=== PATIENT | male | born 1940 | race Caucasian/White ===

== ENCOUNTER 2017-03-31 13:49 | Inpatient (IN) ==
[2017-03-31] MEDS ORDERED: TYLENOL PO PRN (14:35)
--- NOTE | 2017-03-31 15:52 | Diag Imaging Result Doc PS360 ---
EXAM: FLAT/UPRIGHT ABD/1 VIEW CHEST HISTORY: epigastric pain TECHNIQUE: Three views with chest COMMENT: There is gas and stool in the rectum. There is no evidence of gastric or small bowel dilatation. There is been cholecystectomy. There is severe degenerative changes in the lumbar spine. No free air is present. CHEST: There is an azygos lobe. There is blunting of the left costophrenic angle which may be due to fluid and/or fibrosis. There may be lingular atelectasis or pneumonia. There is apparent fibrosis in the right costophrenic sulcus. No previous studies are available for comparison. IMPRESSION: Pleural and parenchymal abnormalities over the left base as described. Mild constipation. Otherwise no evidence of acute disease in the abdomen. Electronically signed by Clark Machado 03/31/2017 3:49 PM
[2017-03-31 16:31] LABS: MANUAL DIFF NEEDED? NO
[2017-03-31 16:38] LABS: BASO% 0.1 % (0.0-0.8); EOS# 0.02 X1000 (0.0-0.7); EOS% 0.3 % (0.0-10.0); HEMATOCRIT 31.4 % (42.0-52.0); HEMOGLOBIN 9.8 g/dL (14.0-18.0); IMM GRAN# 0.02 X1000 (0.0-0.04); IMM GRAN% 0.3 % (0.0-0.5); LYMPH# 0.86 X1000 (1.2-3.4); LYMPH% 12.9 % (20.5-51.1); MCH 29.5 PG (27-31); MCHC 31.2 g/dL (33-37); MCV 94.6 FL (81-99); MONO# 0.64 X1000 (0.11-0.59); MONO% 9.6 % (1.7-9.3); MPV 9.6 FL (7.4-10.4); NEUT% 76.8 % (42.2-75.2); PLT 390 X1000 (130-400); RBC 3.32 XMIL (4.7-6.1)
[2017-03-31 16:49] LABS: AGAP 13; ALBUMIN 3.4 g/dL (3.5-5.0); ALKALINE PHOSPHATASE 92 U/L (32-122); AMYLASE 46 U/L (20-200); BUN 15 mg/dL (8-22); CALCIUM 9.3 mg/dL (8.8-10.2); CHLORIDE 98 mmol/L (98-107); COSMO 280; GOT 11 U/L (10-34); GPT 6 U/L (10-44); LIPASE 13 U/L (13-60); POTASSIUM 4.2 mmol/L (3.5-5.1); SODIUM 140 mmol/L (136-145); TCO2 29 mmol/L (25-35); TOTAL BILIRUBIN 0.53 mg/dL (0.20-1.00); TOTAL PROTEIN 7.1 g/dL (6.3-8.3)
[2017-03-31] MEDS: NS 1,000 ML IV SCH (18:37)
[2017-03-31] MEDS: PROTONIX IV SCH (18:37)
[2017-03-31] MEDS: SODIUM CHLORIDE 0.9% INJ SCH (18:37)
[2017-03-31 19:11] LABS: URINE CULTURE NEEDED? NO; URINE MICRO REVIEW NEEDED? NO; URINE SOURCE CLEAN CATCH
[2017-03-31 19:14] LABS: UR EPITHELIAL CELLS <10 /HPF (<10); URINE BACTERIA NEGATIVE /HPF; URINE RBC <10 /HPF (<10); URINE WBC <10 /HPF (<10)
[2017-03-31] MEDS ORDERED: DULCOLAX PR ONE (19:18)
[2017-03-31 19:22] LABS: BILIRUBIN URINE SMALL (NEGATIVE); BLOOD URINE NEGATIVE (NEGATIVE); COLOR YELLOW; GLUCOSE URINE NEGATIVE (NEGATIVE); LEUKOCYTES URINE NEGATIVE (NEGATIVE); NITRITE URINE NEGATIVE (NEGATIVE); PH URINE 5.5; PROTEIN URINE 30 mg/dL (NEGATIVE); SP GRAVITY URINE 1.029; TURBIDITY URINE CLEAR (CLEAR); UROBILINOGEN URINE 4 mg/dL (NORMAL)
[2017-03-31] MEDS: MIRALAX PO SCH (23:01)
[2017-03-31] MEDS: CARAFATE LIQUID PO SCH (23:01)
[2017-03-31] MEDS: LEVAQUIN 750 MG/D5W 750 MG/150 ML IVPB IV SCH (23:01)
[2017-04-01] MEDS: CARAFATE LIQUID PO SCH ×4 (01:22→21:00)
[2017-04-01 05:42] LABS: MANUAL DIFF NEEDED? NO
[2017-04-01] MEDS: PROTONIX IV SCH ×2 (05:44→21:00)
[2017-04-01] MEDS: SODIUM CHLORIDE 0.9% INJ SCH ×2 (05:44→21:00)
[2017-04-01 05:50] LABS: BASO% 0.2 % (0.0-0.8); EOS# 0.03 X1000 (0.0-0.7); EOS% 0.5 % (0.0-10.0); HEMATOCRIT 29.8 % (42.0-52.0); HEMOGLOBIN 9.2 g/dL (14.0-18.0); LYMPH# 0.99 X1000 (1.2-3.4); LYMPH% 16.7 % (20.5-51.1); MCH 29.1 PG (27-31); MCHC 30.9 g/dL (33-37); MCV 94.3 FL (81-99); MONO# 0.85 X1000 (0.11-0.59); MONO% 14.4 % (1.7-9.3); MPV 9.7 FL (7.4-10.4); NEUT% 68.2 % (42.2-75.2); PLT 358 X1000 (130-400); RBC 3.16 XMIL (4.7-6.1)
[2017-04-01 06:05] LABS: AGAP 10; BUN 14 mg/dL (8-22); CALCIUM 8.9 mg/dL (8.8-10.2); CHLORIDE 101 mmol/L (98-107); COSMO 284; POTASSIUM 4.3 mmol/L (3.5-5.1); SODIUM 142 mmol/L (136-145); TCO2 31 mmol/L (25-35)
--- NOTE | 2017-04-01 08:16 | Diag Imaging Result Doc PS360 ---
EXAM: CHEST-2 VIEWS HISTORY: pna lt TECHNIQUE: COMPARISON: 03/31/2017 FINDINGS: There is a small left pleural effusion with basilar atelectasis. Heart is not enlarged. The vessels are not distended. No consolidation. There is an azygous fissure. This is a normal variant. Minimal increased markings in the right costophrenic angle. These are similar to the prior exam. IMPRESSION: Stable chest. Electronically signed by Ruben Portillo 04/01/2017 8:14 AM
[2017-04-01] MEDS: NS 1,000 ML IV SCH ×2 (08:52→23:03)
[2017-04-01] MEDS: NORVASC PO SCH (08:53)
[2017-04-01] MEDS: ZYLOPRIM PO SCH (08:53)
[2017-04-01] MEDS: PROSCAR PO SCH (08:53)
[2017-04-01] MEDS: MIRALAX PO SCH (08:53)
[2017-04-01] MEDS: DIOVAN PO SCH (08:53)
[2017-04-01] MEDS: ICAR-C PO SCH (08:53)
--- NOTE | 2017-04-01 12:48 | PROGRESS NOTE ---
DATE: 04/01/2017 SUBJECTIVE: Patient says he is feeling a bit better this morning. Says abdominal pain seems to be improving. He denies particular shortness of breath. No chest pain. No leg pain. On x-ray there are some opacities that showed up especially over the left base and lingular area with D- dimer being elevated at 1.92. Urinalysis is negative for blood and essentially negative. OBJECTIVE: Afebrile, pulse 81, respirations 20, blood pressure 120/55, O2 saturation room air 93%. Edentulous. CV: RRR with a 4/6 murmur. Lungs: CTA distant breath sounds. Abdomen: Soft, active bowel sounds. Minimal epigastric tenderness, improved. Heme-positive stool noted on occult blood testing. Extremities: No calf tenderness, cords or edema. Neurologic: Cranial nerves are intact without focal deficits. He is smiling today and appears better than yesterday. LABS: Show white count 5.9, hemoglobin 9.2 down from 9.8 yesterday, platelets 358,000. D-dimer again elevated at 1.92. Sodium 142, potassium 4.3, chloride 101, CO2 31, BUN 14, creatinine 0.9, calcium 8.9. ProBNP elevated at 2043. Liver function tests, amylase, lipase normal. Plasma lactate 1.0, total CK 40. Chest x-ray repeated this morning with this time a PA and lateral reveals small left pleural effusion with left basilar atelectasis. Blood vessels not distended. Minimal increased markings in the right costophrenic angle. ASSESSMENT: 1. Nausea and vomiting resolved. 2. Epigastric abdominal pain improved. 3. Left flank pain improved. 4. Chronic cough with elevated D-dimer. Rule out PTE. 5. Heme-positive stool with iron deficiency anemia. 6. Severe aortic stenosis. He is followed by Dr. Kulkarni with patient refusing further workup and further treatment per Dr. Kulkarni. He is adamant he does not want surgery as he has been doing well prior to this. 7. Type 2 diabetes mellitus diet controlled. 8. Hypertension. 9. Osteoarthritis. 10. Gout. 11. Remote history of kidney stones. 12. BPH followed by Dr. Esparza. PLAN: With the lung opacities would start him on Levaquin last evening. Will follow blood cultures but they are negative so for. We will check CT pulmonary angiogram in light of lung opacities and elevated D-dimer and chronic cough. With heme-positive stool if his PTE workup is negative we will plan on obtaining GI consultation for further workup of that particularly in light of previous hiatal hernia. I am concerned he might have some peptic ulcer disease with the epigastric pain and heme-positive stool. We will continue to treat him with IV PPI and oral Carafate liquid. Continue to monitor his CBC, renal function and electrolytes closely. cc: Shivam Holguin MD
--- NOTE | 2017-04-01 14:25 | HISTORY AND PHYSICAL ---
CHIEF COMPLAINT: Nausea and vomiting for 4 days with left flank pain and abdominal pain. HISTORY OF PRESENT ILLNESS: The patient is a 77-year-old white male followed in my medical practice. He comes in with epigastric pain, nausea and vomiting for 4 days. He denies hematemesis but he does notice emesis has been darker having been yellow initially. He has had some pain in the left flank area quite significantly, has had a cough prominent nonproductive for 2 months worsening of over the last 4-5 days. Was seen in the office on 03/27/2017 for his yearly physical where labs were good except he did have anemia prominently which was thought to possibly be at least contributed to by severe aortic stenosis he suffers from. We brought him back yesterday and on 03/30 we did additional labs which showed iron deficiency anemia with total iron of 16, unbound iron 222, TIBC 238, iron saturation 7, reticulocyte count 1.76, ferritin 371, vitamin B12 339, folate level 9.4 and we started him on Icar-C b.i.d. and folic acid 1 mg daily. We also had changed him on 03/27 from his ramipril 10 mg daily to Diovan 320 mg daily. Other home medicines include the Icar-C 1 p.o. b.i.d. just started along with folate 1 mg daily, Tylenol 1 p.o. daily 325 mg, MiraLAX daily, allopurinol 300 mg daily, Norvasc 5 mg p.o. daily, Proscar 5 mg p.o. daily. ALLERGIES: NKDA. PAST MEDICAL HISTORY: 1. BPH with history of prostatitis followed by Dr. Esparza. 2. Hypertension longstanding. 3. Type 2 DM diet controlled. 4. Hypertriglyceridemia remote. 5. History of C2 fracture from a horse riding accident November 2004. 6. History of kidney stones 2004. 7. Gout inactive times years on allopurinol. 8. Severe aortic stenosis. 9. Osteoarthritis pronounced knees and back especially. PAST SURGICAL HISTORY: 1. Cholecystectomy. 2. TURP. 3. Left TKR 04/22/2014. 4. History of C2 vertebrae stabilization per neurosurgery in [place]. IMMUNIZATIONS: Pneumovax 23 given 06/07/2004 and 07/16/2009, tetanus immunization given January 2013., Prevnar 13 given December 2015. FAMILY HISTORY: Noncontributory. SOCIAL HISTORY: The patient lives in [place], [place]. 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 He has 2 children. He is . He is a nonsmoker. No alcohol use. ROS: Had EGD in the past 5 years or so per Dr. Barker. Last colonoscopy March 2012, history of hiatal hernia, also notable for chronic cough for 2 months nonproductive, we had just recently changed him off his Altace to Diovan to see if that would help. Otherwise ROS positive for constipation. PHYSICAL EXAM: VITAL SIGNS: Temp 98.3 degrees, pulse 84, respirations 16, blood pressure 131/60, O2 saturation room air 96%. GENERAL: Mild to moderate obesity. SKIN: No breakdown. HEENT: JULIANA, EOMI. Sclerae clear. OP no redness. Tongue in the midline, edentulous. NECK: No LA, TMG, JVD. There is radiation of heart murmur into the carotids left greater than right. CV: RRR with 4/6 murmur heard best right and left upper sternal border. LUNGS: Distant breath sounds at the lung bases otherwise CTA. BACK: No CVA tenderness. ABDOMEN: Soft, active bowel sounds. Moderate tenderness epigastrium. No mass, organomegaly, rebound or guarding. Patient does look somewhat ill appearing. GENITOURINARY/RECTAL: Deferred. EXTREMITIES: No calf tenderness, cords or edema. Peripheral pulses 2+. Moderate OA changes noted at the hands. NEUROLOGIC: CN 2 through 12 intact nonfocal. ASSESSMENT: 1. Epigastric abdominal pain. 2. Nausea and vomiting. 3. Left flank pain. 4. Severe aortic stenosis. 5. Hypertension. 6. Diet-controlled type 2 diabetes mellitus. 7. Osteoarthritis. 8. Dyslipidemia. 9. Gout. 10. History of kidney stones remote. 11. History of C2 fracture well healed status post surgery. 12. Constipation. PLAN: At this time will admit the patient to the hospital. Give him IV hydration. Check labs to include CBC, CMP, amylase, lipase, lactate level, total CK, check urinalysis. Start the patient on IV PPI and add oral Carafate liquid. Will Hemoccult stools and as he has had some constipation will treat him with laxatives, will continue his Norvasc and Diovan, allopurinol, Proscar. Icar-C, give him Dilaudid as needed for severe pain. Check chest x-ray with flat and upright of the abdomen along with blood cultures x2. Keep him NPO initially. cc: Shivam Holguin MD
--- NOTE | 2017-04-01 17:42 | Diag Imaging Result Doc PS360 ---
EXAM: ANGIOGRAM/PULMONARY ARTERIES HISTORY: elevated d-dimer:lung opacities TECHNIQUE: COMPARISON: None. FINDINGS: There is a small left-sided pleural effusion effusion measuring 2.5 cm posteriorly and inferiorly in the midline. There is a round opacity in the posterior medial left lung base measuring almost 6 cm. This circumferentially surrounds and narrows the pulmonary arteries. No distinct filling defects within the pulmonary arteries. Heart is mildly enlarged. The vasculature is mildly distended. There are mild to moderate emphysematous changes. There is an azygous fissure. IMPRESSION: 1.Left lower lobe mass with a small left effusion and atelectasis 2.No pulmonary emboli 3.Emphysema 4.Mildly prominent heart with mild vascular distention Electronically signed by Ruben Portillo 04/01/2017 5:40 PM
[2017-04-01] MEDS: ZOFRAN IV PRN (21:00)
[2017-04-01] MEDS: LEVAQUIN 750 MG/D5W 750 MG/150 ML IVPB IV SCH (23:03)
[2017-04-02] MEDS: CARAFATE LIQUID PO SCH ×4 (02:28→23:10)
[2017-04-02 06:09] LABS: MANUAL DIFF NEEDED? NO
[2017-04-02 06:17] LABS: BASO% 0.2 % (0.0-0.8); EOS# 0.01 X1000 (0.0-0.7); EOS% 0.2 % (0.0-10.0); HEMATOCRIT 28.7 % (42.0-52.0); HEMOGLOBIN 8.8 g/dL (14.0-18.0); IMM GRAN# 0.02 X1000 (0.0-0.04); IMM GRAN% 0.3 % (0.0-0.5); LYMPH# 0.86 X1000 (1.2-3.4); LYMPH% 13.4 % (20.5-51.1); MCH 28.9 PG (27-31); MCHC 30.7 g/dL (33-37); MCV 94.1 FL (81-99); MONO# 0.62 X1000 (0.11-0.59); MONO% 9.6 % (1.7-9.3); MPV 9.8 FL (7.4-10.4); NEUT% 76.3 % (42.2-75.2); PLT 360 X1000 (130-400); RBC 3.05 XMIL (4.7-6.1)
[2017-04-02 06:32] LABS: AGAP 8; BUN 12 mg/dL (8-22); CALCIUM 8.8 mg/dL (8.8-10.2); CHLORIDE 101 mmol/L (98-107); COSMO 282; POTASSIUM 4.3 mmol/L (3.5-5.1); SODIUM 141 mmol/L (136-145); TCO2 32 mmol/L (25-35)
[2017-04-02] MEDS: PROSCAR PO SCH (09:11)
[2017-04-02] MEDS: ICAR-C PO SCH (09:11)
[2017-04-02] MEDS: ZOFRAN IV PRN (09:11)
[2017-04-02] MEDS: ZYLOPRIM PO SCH (09:11)
[2017-04-02] MEDS: PROTONIX IV SCH ×2 (09:11→23:10)
[2017-04-02] MEDS: DIOVAN PO SCH (09:11)
[2017-04-02] MEDS: SODIUM CHLORIDE 0.9% INJ SCH (09:11)
[2017-04-02] MEDS: NORVASC PO SCH (09:12)
[2017-04-02] MEDS: NS 1,000 ML IV SCH ×2 (09:13→15:04)
[2017-04-02] MEDS: MIRALAX PO SCH (09:17)
[2017-04-02] MEDS ORDERED: SODIUM CHLORIDE 0.9% INJ PRN (13:14)
[2017-04-02] MEDS ORDERED: PHENERGAN IV PRN (13:14)
--- NOTE | 2017-04-02 15:20 | PROGRESS NOTE ---
DATE: 04/02/2017 SUBJECTIVE: Patient has pronounced nausea and vomiting x1 last evening, did have a bowel movement as well. Is still complaining of dry cough. OBJECTIVE: Vital signs: Afebrile, pulse 74, respiration 16, blood pressure 113/59, O2 saturation room air 92-94%. CV: RRR with 4/6 murmur unchanged. Lungs: Distant breath sounds. CTA. Abdomen: Mild epigastric tenderness. Active bowel sounds. Extremities: No edema. DATA: Heme-positive stools noted. Blood cultures x2 remain negative. LABS: White count 6.4, hemoglobin 8.8, platelets 360,000, neutrophils 76, lymphocytes 13, monocytes 9.6. Sodium 141, potassium 4.3, chloride 101, CO2 32, BUN 12, creatinine 0.9, calcium 8.8. CT pulmonary angiogram was done yesterday evening and it shows no pulmonary thromboemboli but shows left lower lobe mass 6 cm circumferentially surrounding the pulmonary arteries and narrows the pulmonary arteries. Small left pleural effusion and atelectasis, emphysema changes noted. ASSESSMENT: 1. Left lung mass. 2. Nausea and vomiting. 3. Epigastric abdominal pain. 4. Anemia likely multifactorial iron deficient in nature possibly associated with gastrointestinal source and aortic stenosis. 5. Severe aortic stenosis with patient refusing further remedies and followed by Dr. Kulkarni. 6. Remote history of smoking. 7. Diet-controlled type 2 diabetes mellitus. 8. Hypertension. 9. Osteoarthritis. 10. Gout. 11. Remote history of kidney stones. 12. Benign prostatic hypertrophy followed by Dr. Esparza. PLAN: At this time continue Levaquin, continue low-dose IV hydration, continue antiemetic in the form of Zosyn and add Phenergan as needed. Continue PPI and sucralfate and I have spoken with Dr. Stubbs who will see the patient in consultation with possible EGD. Will also get Dr. Mckenzie to see the patient when he is available in regard to the lung mass and Dr. Turcios as well. cc: Shivam Holguin MD
[2017-04-02] MEDS: LEVAQUIN 750 MG/D5W 750 MG/150 ML IVPB IV SCH (23:10)
[2017-04-02] MEDS: ROBITUSSIN-DM PO PRN (23:10)
[2017-04-03] MEDS: CARAFATE LIQUID PO SCH ×4 (04:12→21:07)
[2017-04-03 05:47] LABS: HEMATOCRIT 28.3 % (42.0-52.0); HEMOGLOBIN 8.7 g/dL (14.0-18.0); MCH 29.8 PG (27-31); MCHC 30.7 g/dL (33-37); MCV 96.9 FL (81-99); MPV 9.5 FL (7.4-10.4); RBC 2.92 XMIL (4.7-6.1)
[2017-04-03 05:50] LABS: INR 1.12; PROTIME 11.8 Seconds (9.2-11.7); PTT 32.5 Seconds (22.0-36.0)
[2017-04-03 06:31] LABS: AGAP 7; BUN 9 mg/dL (8-22); CHLORIDE 101 mmol/L (98-107); COSMO 275; POTASSIUM 4.2 mmol/L (3.5-5.1); SODIUM 138 mmol/L (136-145); TCO2 30 mmol/L (25-35)
[2017-04-03] MEDS: NS 1,000 ML IV SCH (08:08)
--- NOTE | 2017-04-03 08:14 | CONSULTATION ---
DATE OF CONSULTATION: 04/02/2017 REASON FOR CONSULTATION: Nausea, vomiting, and left-sided upper abdominal pain and left flank pain. HISTORY OF PRESENT ILLNESS: A 71-year-old gentleman presents with epigastric pain, nausea, and vomiting for about 4 days. No hematemesis, but he says the vomiting is dark. He has also has coughing spells with pain in the left upper quadrant going on for about 2 months. He had also has *Dictation Stops Here* cc: MD Shivam North MD
[2017-04-03 12:44] LABS: IRON SATURATION 10 %; TIBC 202 ug/dL; TOTAL IRON 21 ug/dL (53-167); UNBOUND IRON 181 ug/dL (112-346)
--- NOTE | 2017-04-03 14:26 | PROGRESS NOTE ---
DATE: 04/03/2017 SUBJECTIVE: Patient is stable. No more nausea or vomiting overnight. OBJECTIVE: Vital signs: Afebrile, pulse 76, respirations 20, blood pressure 121/62, O2 saturation room air 93-99%. Cardiovascular: Regular rhythm and rate. Lungs: Distant breath sounds. Clear to auscultation. Abdomen: Nontender, nondistended. Extremities: No calf tenderness, cords or edema. Two bowel movements yesterday. ASSESSMENT: 1. Left lung mass. 2. Nausea and vomiting. 3. Epigastric abdominal pain. 4. Anemia, thought multifactorial, iron deficient with heme-positive stool and possibly contribution from aortic stenosis. 5. Severe aortic stenosis with patient refusing further treatments as outlined to him by his shift lab technician, Dr. Kulkarni. 6. Remote history of smoking. 7. Type 2 diabetes mellitus, diet controlled. 8. Hypertension. 9. Osteoarthritis. 10. Gout. 11. Remote history of kidney stones. 12. Benign prostatic hypertrophy followed by Dr. Esparza. PLAN: At this time, the patient is going through workup per Gastroenterology, Dr. Mckenzie, Dr. Turcios, and will entertain further recommendations per these fine specialists. cc: Shivam Holguin MD
--- NOTE | 2017-04-03 15:29 | Diag Imaging Result Doc PS360 ---
EXAM: ABDOMEN/PELVIS W/CONTRAST INDICATION: ? gastric outlet COMPARISON: CTA chest dated 04/01/[address] abdomen and pelvis dated 04/19/2011 FINDINGS: The known left lower lobe lung mass seen on the recent CTA chest is again identified. It is partially imaged but appears to be stable. There is stable pleural thickening and a small effusion at the left lung base. There has been a previous cholecystectomy. There is no discrete hepatic mass. The liver is grossly unremarkable, otherwise. There is no evidence of gastric outlet obstruction. However, there is a focal stricture involving a loop of the small bowel near the ventral mid abdomen just superior to the level of the umbilicus. There is wall thickening at this site and there is surrounding inflammatory stranding (see image 77, series 3). A neoplastic process cannot be excluded. Proximal to this stricture, the small bowel is mildly distended suggesting a partial low-grade obstruction. There is descending and sigmoid diverticulosis coli but there is no evidence of diverticulitis. There are multiple renal cysts bilaterally that have a simple appearing architecture. The remainder of the solid viscera of the abdomen and pelvis and the remainder of the GI tract are essentially unremarkable. There are compression deformities at the L1 and L2 vertebral bodies of unknown acuity. There is evidence of a prominent hemangioma in the L4 vertebral body. There are multilevel degenerative changes throughout the spine. IMPRESSION: 1.Focal small bowel stricture with wall thickening and surrounding stranding as described above. Although it is nonspecific, a neoplastic process cannot be excluded. 2.Mild dilation of the small bowel just proximal to the stricture suggesting a low-grade partial bowel obstruction. 3.Known left lower lobe lung mass with pleural thickening and a small effusion at the left lung base that is essentially stable as compared to a recent CTA chest. 4.A couple lumbar spine compression deformities of unknown acuity. 5.Other incidental/nonacute findings detailed above. Electronically signed by Pieter Bowser 04/03/2017 3:27 PM
[2017-04-03] MEDS: DIOVAN PO SCH (15:40)
[2017-04-03] MEDS: ZYLOPRIM PO SCH (15:40)
[2017-04-03] MEDS: PROSCAR PO SCH (15:41)
[2017-04-03] MEDS: PROTONIX IV SCH ×2 (15:41→21:07)
[2017-04-03] MEDS: NORVASC PO SCH (15:41)
[2017-04-03] MEDS: ICAR-C PO SCH (15:41)
[2017-04-03] MEDS: SODIUM CHLORIDE 0.9% INJ SCH ×2 (15:41→21:07)
[2017-04-03] MEDS: MIRALAX PO SCH (15:42)
[2017-04-03] MEDS ORDERED: ALBUTEROL NEB ONE (15:45)
--- NOTE | 2017-04-03 15:47 | CONSULTATION ---
DATE OF CONSULTATION: 04/03/2017 REQUESTING PHYSICIAN: Dr. Jean Paul Holguin. REASON FOR CONSULTATION: Lung mass. HISTORY OF PRESENT ILLNESS: Mr. Yepez is a 77-year-old white male with a [id number] history for tobacco, history of critical aortic stenosis with moderate pulmonary hypertension, who noticed the onset of a dry cough approximately 2 months ago. This did not improve with different medications. He denies fevers or chills. He denies hemoptysis. Over the last 3-4 weeks, he has had increasing difficulty with intermittent vomiting. The patient reports he will eat a meal and then 3 or 4 hours later he will have to vomit to relieve abdominal distention and pain. The patient was evaluated by Dr. Holguin and was found to be anemic. He had increasing difficulty keeping p.o. solids and liquids down after eating and was subsequently admitted to the hospital. GI evaluation is in progress and patient is tentatively scheduled for an endoscopy. A CT scan of the thorax was performed for an abnormal chest x-ray. The patient has a 6 cm mass in the left lower lobe with apparent obstruction of the airways to the basilar segments. He has a small 2.5 cm effusion. Pulmonary consultation was requested. PAST MEDICAL HISTORY: 1. Critical aortic stenosis. The patient's last echocardiogram was 02/15/2016, when his aortic valve area was 0.9 cm2. He has refused intervention of this valve. The patient also has moderate pulmonary hypertension with a PA pressure in the mid 50s. 2. History of hiatal hernia. 3. BPH. 4. Hypertension. 5. Type 2 diabetes mellitus. 6. Dyslipidemia. 7. History of cervical neck fracture. 8. Nephrolithiasis. 9. History of gout. 10. Osteoarthritis. 11. Status post cholecystectomy. 12. Left total knee replacement. SOCIAL HISTORY: Remote tobacco use. The patient reports he stopped smoking in the 1980s after his cholecystectomy. No alcohol use listed. 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 FAMILY HISTORY: Father with lung cancer. Sister had an unspecified blood cancer. Mother when the patient was 4 years old, possibly from suicide although not discussed in the family. REVIEW OF SYSTEMS: Notable for intermittent abdominal pain and vomiting as per above. Dry cough for 2 months. The patient has had a 20 pound weight loss over the last 4-6 weeks. He denies fevers, chills, hemoptysis. The patient denies dyspnea on exertion. PHYSICAL EXAMINATION: General: Reveals reveals a well-developed, well-nourished, white male, resting comfortably and in no distress. Vital signs: Blood pressure 121/62, heart rate 76, respiration rate 18, oxygen saturation 95% on room air. HEENT: Pupils are equal and reactive. There is mild temporal wasting. Oropharynx is clear. Neck: Supple. Chest: Reveals diminished breath sounds left base. There is wheezing in the left hemithorax on exhalation. Cardiac: Regular rate and rhythm. Normal S1, normal S2. There is a 3-4/6 systolic ejection murmur most prominent over the right upper sternal border, but can be heard throughout the thorax both anteriorly and posteriorly. Abdomen: Soft and without overt masses. Extremities: Without edema. LABORATORIES: White blood count 5.41, hemoglobin 8.7, platelet count 345,000. Chemistry: Sodium 138, potassium 4.2, chloride 101, bicarbonate 30, BUN 9, creatinine 0.8. IMPRESSION: A 77-year-old with mild emphysema on CT scan, large left lower lobe mass, dry cough, small effusion, weight loss, with intermittent abdominal pain. CT scan of the thorax is worrisome for bronchogenic carcinoma. Etiology for the intermittent abdominal distention and vomiting is not clear, but a GI evaluation is in progress. He has a significant aortic murmur and known aortic stenosis and has refused intervention by Dr. Kulkarni in the past. If he requires surgical intervention, it will be difficult with his degree of aortic stenosis. RECOMMENDATIONS: 1. Check blood work for CEA level. 2. Check pulmonary function studies. 3. Schedule patient for bronchoscopy to evaluate the left lower lobe mass. 4. GI evaluation as you are doing. 5. Additional recommendations pending hospital course. cc: MD Shivam Britt MD
--- NOTE | 2017-04-03 15:49 | CONSULTATION ---
DATE OF CONSULTATION: 04/03/2017 REASON FOR CONSULT: Patient with left lower lobe mass. HISTORY OF PRESENT ILLNESS: This is a pleasant male that came to the emergency room for evaluation after having left flank pain and epigastric pain for approximately a week. He had been throwing up and his emesis has been quite dark. He also has a 2 month history of dry cough with weight loss of approximately 15-20 pounds over the last 2 months. He denies drenching night sweats, fevers, chills. He has remote history of smoking cigarettes. Labs in the ER revealed an elevated D- dimer so a CTA of the chest was performed and it revealed a left lower lobe mass as well as small left effusion and atelectasis. Abdominal x-ray revealed no acute process. It showed mild constipation. Hemoglobin is 8.7, hematocrit 28.3, and his stools were positive for occult blood. GI has been consulted as has Dr. Mckenzie. REVIEW OF SYSTEMS: Are negative unless indicated in the HPI. ALLERGIES: No known allergies. PAST MEDICAL HISTORY: Severe aortic stenosis, previous C2 fracture from a horse riding accident, gout, type 2 diabetes, hypertension, BPH. SOCIAL HISTORY: Patient has a remote history of smoking cigarettes. He quit in the . Denies alcohol or illicit drug use. The patient's last colonoscopy was in 2011. PHYSICAL EXAMINATION: Constitutional: This is a male in no acute distress. HEENT: Head is normocephalic, atraumatic. Pupils equal, round, symmetric. Trachea is midline. Cardiovascular: S1, S2 audible to auscultation. There is a 3/6 systolic murmur. Pulmonary: Breath sounds clear to auscultation with diminished bilateral bases. Normal respiratory effort. Abdomen: Soft, nondistended. Positive bowel sounds. He does have some epigastric tenderness. Extremities: Moves all extremities. Neurologic: Alert, orient x3. Psychiatric: Appropriate to the situation. ASSESSMENT AND PLAN: 1. Left lower lobe mass. Pulmonology has been consulted. CEA is pending. Patient is to undergo a bronchoscopy in the morning. He will require PET scan as an outpatient. We will continue to follow along 2. Gastric outlet obstruction. Dr. Stubbs has been consulted and there are plans for EGD soon. CT abdomen/pelvis is currently pending. 3. Anemia. Will check iron indices and make further recommendations. Transfuse PRN. 4. Type 2 diabetes per primary team. 5. Severe Aortic Stenosis. Per Cardiology Dictated by WIL Goff for Abiodun Turcios MD cc: WIL Goff MD Stephen W. Harbin, MD [facility]ITALVirgilio
--- NOTE | 2017-04-03 22:39 | CONSULTATION ---
DATE OF CONSULTATION: 04/03/2017 REASON FOR REFERRAL: Nausea, vomiting, abdominal pain. HISTORY OF PRESENT ILLNESS: This is a 77-year-old white male who presented to the hospital with abdominal pain. He had complained of nausea and vomiting. He also reports cough and weight loss over the last several months. He reports losing approximately 15-20 pounds over the last several months. Workup included a CT scan of the chest that revealed a left lower lobe mass as well as left effusion and atelectasis. He also had a CT scan of the abdomen and pelvis that showed focal small bowel stricture with wall thickening and surrounding stranding, possible neoplastic process could not be excluded. There was mild dilation of the small bowel proximal to the stricture suggesting a low-grade partial bowel obstruction. Also was noted the left lower lobe lung masses with pleural thickening and a small effusion at the left lung base. Patient reports recent issues with constipation. He has been given laxatives in the hospital and he has had some results. Patient was last seen in our office when he had an EGD in 2012. Findings showed moderately severe esophagitis and a hiatal hernia. He had a colonoscopy in 2011. Findings showed diverticulosis and internal and external hemorrhoids. PAST MEDICAL HISTORY: Aortic stenosis. History of C2 fracture. Gout. Diabetes. Hypertension. Benign prostatic hypertrophy. PAST SURGICAL HISTORY: Cholecystectomy TURP. Left knee replacement. History of C2 vertebra stabilization. ALLERGIES: No known drug allergies. HOME MEDICATIONS: Tylenol 325 mg daily. Amlodipine 5 mg daily. Zyloprim 300 mg daily. Finasteride 5 mg daily. Iron 100 mg daily. MiraLAX as needed. Valsartan 320 mg daily. SOCIAL HISTORY: He quit tobacco use over 30 years ago. He reports occasional alcohol use. He is . He has 2 children. REVIEW OF SYSTEMS: Per HPI. PHYSICAL EXAMINATION: Vital Signs: Temperature 98 degrees, pulse 86, respirations 18, blood pressure 104/53. Generally: Patient is awake and alert. No acute distress. HEENT: Normocephalic, atraumatic. Pupils equal, round, reactive to light. Sclerae nonicteric. Lungs: Sound essentially clear bilaterally. Cardiovascular: Regular rate and rhythm. Abdomen: Soft, nontender. Positive bowel sounds. Extremities: No lower extremity edema noted. DIAGNOSTIC RESULTS: Hematology: White count 5.41, hemoglobin 8.7, hematocrit 28.3, MCV 96.9, platelet 345,000. Coagulation: ProTime 11.8, INR 1.10, PTT 32.5, D-dimer 1.92. Chemistry: Sodium 138, potassium 4.2, chloride 101, CO2 30, BUN 9, creatinine 0.8, glucose 118, iron 21, TIBC 202, percent saturation 10, ferritin 269, total bilirubin 0.53, AST 11, ALT 6, alkaline phosphatase 92. ProBNP 2043, albumin 3.4. Pulmonary arteriogram showed a left lower lobe mass with small left effusion and atelectasis. Abdominal and pelvis CT scan showed focal small bowel stricture with wall thickening. Possible neoplastic process. Mild dilation of small bowel just proximal to the stricture suggesting a low-grade partial bowel obstruction and left lower lobe lung mass. ASSESSMENT AND PLAN: Left lower lobe lung mass. Dr. Mckenzie has been consulted. Plan for bronchoscopy scheduled for tomorrow. Awaiting CEA. CT findings showed possible bowel obstruction. We will consult [facility]. Continue supportive care. Gastroenterology will continue to follow. Further plans will be made as needed. I have discussed this case with Dr. Barker. Thank you for this consultation. Dictated by WIL Enamorado for Terry Barker MD cc: WIL Huerta MD Stephen W. Harbin, MD
[2017-04-03] MEDS: LEVAQUIN 750 MG/D5W 750 MG/150 ML IVPB IV SCH (23:01)
--- NOTE | 2017-04-04 04:03 | CONSULTATION ---
DATE OF CONSULTATION: 04/03/2017 REASON FOR CONSULTATION: Small bowel obstruction. HISTORY OF PRESENT ILLNESS: This is a 77-year-old male, who has been having intermittent epigastric crampy pain especially after eating solid food with intermittent nausea and vomiting. Usually the abdominal cramping, nausea, vomiting and some distention occur several hours after eating food. However, he is having bowel movements. He does complain of about 15 pounds of weight loss and feeling tired. He has been noted to have a nonproductive cough for a couple of months. He has been anemic during his outpatient workup. Specifically, in iron deficiency anemia. He denies chest pain. ALLERGIES: No known drug allergies. PAST MEDICAL HISTORY: BPH, hypertension, type 2 diabetes, severe aortic stenosis, osteoarthritis, gout, history of kidney stones, history of C2 fracture. PAST SURGICAL HISTORY: Open cholecystectomy, TURP, left total knee replacement, C2 stabilization. FAMILY HISTORY: Reviewed and noncontributory. SOCIAL HISTORY: He is working and with 2 children. He is nonsmoker and denies alcohol use. HOME MEDICATIONS: Positive for amlodipine, valsartan, finasteride, acetaminophen, allopurinol, polyethylene glycol, and vitamin C and iron. REVIEW OF SYSTEMS: Ten systems reviewed and negative except as noted above. PHYSICAL EXAMINATION: Vital Signs: Temperature 99 degrees, pulse 81, respirations 18, blood pressure 104/54, O2 saturation 96%. General: Well-developed, well-nourished elderly male who looks his stated age in no acute distress. HEENT: Normocephalic, atraumatic. Extraocular muscles intact. Pupils equal, round, reactive to light. Sclerae anicteric. Moist mucous membranes. Hearing grossly normal. No oral lesions. Neck: Supple. No thyromegaly. CV: Regular rate and rhythm with a loud systolic murmur. Respiratory: Bilateral equal breath sounds that are decreased in left base. GI: Soft, nondistended. Mild tenderness to palpation in the epigastrium. No rebound or guarding. He has good bowel sounds. No hernias appreciated. Skin: Warm and dry. No rash. Musculoskeletal: Moves all extremities equally and well. Extremities: No clubbing, cyanosis, or edema. LABORATORY: White blood cell count 5.4, hemoglobin 8.7, hematocrit 28, platelet count 345,000. INR 1.1. Metabolic profile reviewed and unremarkable. Amylase and lipase are normal. CEA level is normal. IMAGING: A CT of the chest reveals a left lower lobe large mass worrisome for bronchogenic carcinoma. A CT of the abdomen reveals an area of small bowel thickening and focal stenosis with mild proximal small-bowel dilation in the mid jejunum concerning for a mechanical bowel obstruction. ASSESSMENT AND PLAN: A 77-year-old male with intermittent abdominal pain and vomiting and what appears to be a partial small-bowel obstruction, possibly from malignancy. He also has a large malignant-appearing mass in the left lower lobe. He is scheduled for bronchoscopy tomorrow. We will see what this shows and further recommendations will be pending his hospital course. I would like some input from Dr. Kulkarni regarding his operative risks. He may require exploratory laparotomy for this mechanical-appearing obstruction versus outpatient further testing with a PET scan, push enteroscopy or capsule endoscopy. cc: MD Shivam Garcia MD
[2017-04-04] MEDS: CARAFATE LIQUID PO SCH ×4 (04:32→21:02)
[2017-04-04] MEDS: PROTONIX IV SCH ×2 (08:07→21:02)
[2017-04-04] MEDS: SODIUM CHLORIDE 0.9% INJ SCH ×2 (08:08→21:02)
[2017-04-04] MEDS ORDERED: XYLOCAINE 2% VISCOUS ONE (09:51)
[2017-04-04] MEDS ORDERED: XYLOCAINE 2% ONE ×2 (09:51)
[2017-04-04] MEDS ORDERED: XYLOCAINE 1% ONE ×2 (09:51)
[2017-04-04] MEDS ORDERED: SODIUM CHLORIDE 0.9% 10 ML ONE ×2 (09:52)
[2017-04-04] MEDS ORDERED: EPINEPHRINE ONE (09:52)
[2017-04-04] MEDS ORDERED: VENOFER 500 MG in NS 250 ML IV ONE (09:57)
[2017-04-04] MEDS ORDERED: TYLENOL PO ONE (09:57)
[2017-04-04] MEDS ORDERED: BENADRYL IV ONE (09:57)
[2017-04-04] MEDS: ZYLOPRIM PO SCH (10:26)
[2017-04-04] MEDS: NORVASC PO SCH (10:30)
[2017-04-04] MEDS: PROSCAR PO SCH (10:30)
[2017-04-04] MEDS: MIRALAX PO SCH (10:31)
[2017-04-04] MEDS: ICAR-C PO SCH (10:31)
[2017-04-04] MEDS: DIOVAN PO SCH (10:31)
[2017-04-04 10:32] LABS: RETIC% 1.82 % (0.8-2.1); RETIC-HE 28.8 PG (28.2-36.6)
[2017-04-04] MEDS: NS 1,000 ML IV SCH ×2 (10:32→13:33)
[2017-04-04] MEDS ORDERED: VERSED ONE (12:35)
[2017-04-04] MEDS ORDERED: KETAMINE (DOSE) ONE (12:35)
[2017-04-04] MEDS ORDERED: DIPRIVAN 1% ONE (12:35)
--- NOTE | 2017-04-04 13:27 | OPERATIVE NOTE ---
PROCEDURE DATE: 04/04/2017 PROCEDURE PERFORMED: Bronchoscopy with endobronchial biopsies. CLINICAL INDICATION: This is a 77-year-old white male with radiographic evidence of left lower lobe mass. DETAILS OF PROCEDURE: After informed consent was obtained, patient was brought to the endoscopy suite. Topical anesthesia was achieved with viscous lidocaine to the right nostril with 2% lidocaine instilled above the vocal cords and 1% lidocaine instilled below the vocal cords during the procedure. Monitored anesthesia care was provided by the anesthesia group and used a combination of ketamine, Diprivan, and Versed. When patient was sedated, bronchoscope was advanced through the right nostril to the level of the vocal cords. The vocal cords were smooth and without lesions. The bronchoscope was advanced into the trachea. There were no abnormal secretions in the trachea. Secretions of the proximal airway were suctioned for cultures and cytology. Airways to the right upper lobe, right middle lobe, and right lower lobe were patent without lesions. The bronchoscope was directed to the left side. At the distal left main, the mucosa changed from pink to erythematous on the medial/posterior wall. Video image was obtained. Entrance to the left lower lobe was completely obstructed. Video image was obtained. Airways to the left upper lobe were edematous and video image was obtained. Multiple biopsies were taken from the area of erythema in the distal mainstem. There was bleeding associated with the biopsies and this was controlled with topical epinephrine. After this specimen container was close, bronchoscope was directed to the occluded left lower lobe entrance. Multiple biopsies were taken from this segment and labeled left lower lobe. The patient had periods of oxygen desaturation. It was not clear whether they actually represented oxygen desaturation or whether it was artifact. The oximeter did appear to be capturing the heart rate but his oxygenation would drop to 70 and then recover in seconds to greater than 90. With the 2nd episode, no additional biopsies were performed and therefore biopsies of the entrance of the left lower lobe were planned but aborted. IMPRESSIONS: 1. Erythema of the distal left mainstem which progressed in to complete obstruction of the left lower lobe with edema in the left upper lobe. 2. Status post washing of the trachea. 3. Status post endobronchial biopsy of the distal left main. 4. Status post multiple biopsies from the occluded segment of the left lower lobe. cc: MD Shivam Britt MD
--- NOTE | 2017-04-04 17:00 | PROGRESS NOTE ---
DATE: 04/04/2017 SUBJECTIVE: The patient had bronchoscopy today. He has had no nausea or vomiting. He has been stable. OBJECTIVE: Vital signs: Afebrile, T max 99.5, pulse 86, blood pressure 135/62, O2 saturation on room air 95 to 99%. CV: RRR with 4/6 murmur. Lungs: Distant breath sounds. CTA. Abdomen: Soft. Active bowel sounds. Nontender, nondistended. Extremities: No edema. DIAGNOSTIC STUDIES: Bronchoscopy reveals erythema distal left mainstem bronchus progressing into complete obstruction of the left lower lobe with edema in the left upper lobe. Bronchial washings obtained from the trachea and endobronchial biopsies of the distal left main done. Also multiple biopsies from the occluded segment of the left lower lobe. LABS: Blood cultures remained negative. Sedimentation rate 92. ASSESSMENT: 1. Left lung mass, 6 cm. 2. Partial obstruction of small bowel. 3. Anemia. 4. Severe aortic stenosis, re-evaluated by Dr. Kulkarni. Not thought to be a good surgical candidate at this point. 5. Remote history of smoking. 6. Diet-controlled type 2 diabetes mellitus. 7. Hypertension. 8. Osteoarthritis. 9. Gout. 10. Remote history of kidney stones. 11. Benign prostatic hypertrophy, followed by Dr. Esparza. PLAN: Dr. Barker is following the patient from a GI standpoint. Dr. Limon has evaluated from a surgical standpoint regarding the small bowel abnormality. So for patient is doing a little better in regard to symptomatology. We will await lung pathology results. cc: Shivam Holguin MD
--- NOTE | 2017-04-04 17:18 | PROGRESS NOTE ---
DATE: 04/04/2017 SUBJECTIVE: The patient denies any abdominal pain, nausea, or vomiting. He is passing gas. OBJECTIVE: Vital Signs: He is afebrile. Vital signs are stable. General: He is awake and alert. No acute distress. GI: Soft, nontender, nondistended. Normal bowel sounds. ASSESSMENT AND PLAN: A 77-year-old male with partial small-bowel obstruction. His symptoms have improved. He is also being evaluated for left lower lobe mass. He has known severe aortic stenosis. At this time, I think the priorities are to establish a diagnosis and plan for the left lower lobe mass. Likely, he would need palliative treatment for this. Chemo, perhaps radiation. I do not think he is a good surgical candidate given his aortic stenosis and high risk of morbidity and mortality. With this in mind, as well, I think watchful waiting for his bowel obstructive symptoms is prudent. If he develops more severe acute obstructive symptoms then a palliative exploration would be indicated. cc: MD Shivam Garcia MD
--- NOTE | 2017-04-04 19:42 | CONSULTATION ---
DATE OF CONSULTATION: 04/04/2017 CONSULTATION REQUESTED BY: Oncology Service and Primary Service. REASON FOR CONSULTATION: Preoperative cardiac evaluation. The patient may require laparotomy and lobectomy. HISTORY: Mr. Yepez is 77 years of age, known to me. I saw him at my office last time on 02/25/2016. Since then the patient has had intermittent gastrointestinal complaints. Lately he has been having issues with abdominal pain after eating, nausea, vomiting, and presently he has been admitted because he was having cough with progressive weight loss and recently found to have anemia. A chest x-ray was done on him that shows a small left pleural effusion with basilar atelectasis. A CT scan of the chest with pulmonary arteriogram protocol done on 04/01/2016 revealed a left lower lobe mass with a small left effusion and atelectasis. The patient has been referred for bronchoscopy which was performed by Dr. Mckenzie today and that shows erythema of the distal left mainstem which progressed into complete obstruction of the left lower lobe with edema in the left upper lobe. That is highly suspicious for malignancy of the lung. In addition, there was a concern of gastric outlet obstruction on him. They did a CT scan of the abdomen on 04/03/2017 which showed a focal small bowel stricture with wall thickening and surrounding stranding. There is mild dilatation of the small bowel just proximal to the stricture suggesting a low-grade partial bowel obstruction. Dr. Kike Limon has seen the patient in consultation and also Dr. Barker who is planning on doing an upper endoscopy for further assessment of this patient's gastrointestinal status. From the cardiac viewpoint, he has not experienced any chest pain. He denies having any swelling of the legs. He has lost weight. He denies having dizziness, lightheadedness, or syncope. PAST MEDICAL HISTORY: His past medical history is significant for hypertension and hyperlipidemia. The patient has been known to have aortic stenosis and, back in February of 2016, I had a lengthy conversation with him at the time of his last visit and we reviewed the results of his echocardiogram performed on 02/15/2016 that indicated that he had severe aortic valve stenosis with a maximum gradient of 100 mmHg, a mean gradient of 56 mmHg, and a valve area of 0.9 cm squared. At that time I made it clear to him that he was at high risk of cardiac events including sudden cardiac . At that time he refused to have any further testing and he has not come back to my office since that particular visit. His medical history is also positive for kidney stones and arthritis. PAST SURGICAL HISTORY: He has had cholecystectomy, knee replacement, and neck surgery. SOCIAL HISTORY: He is . He has three children. FAMILY HISTORY: Family history is not significant. HOME MEDICATIONS: 1. Amlodipine 5 mg daily. 2. Allopurinol 300 mg daily. 3. Finasteride 5 mg daily. 4. Valsartan 320 daily. REVIEW OF SYSTEMS: He has had progressive weight loss, poor appetite, not tolerating foods, vomiting. PHYSICAL EXAMINATION: Vital signs: Blood pressure is 135/62, temperature 98.4 , pulse 86, respirations 20. General: The patient is awake, alert, oriented, somewhat pale , in no distress. Neck: No jugular venous distention. Chest: Shows diminished breath sounds at the left base. No rales are noted. Cardiac: Heart sounds are regular and rhythmic with a prominent systolic ejection murmur, 3/6, from the base of the heart and radiating to the neck. Abdomen: Soft. Bowel sounds diminished. Nontender. No hepatomegaly. Extremities: Show good pulses. No edema. Neurologic: He moves four extremities, follows commands. LABORATORY DATA: Sodium 138, potassium 4.2, BUN 9, creatinine 0.8. His hemoglobin is 8.7, hematocrit 28.3, white count 5410. EKG has not been done on this admission. Pulmonary function tests from 03/31/2017 showed in the preliminary report that he has moderate airway obstruction and lung volumes are reduced, indicating a concurrent restrictive process. IMPRESSION: 1. Patient who presents with a left lung mass, probably lung cancer, advanced. 2. Small bowel obstruction, partial. Etiology of that abnormality is unclear. Could be neoplastic. 3. Severe bordering into critical aortic stenosis per echo dated January 2016. No recent echo has been repeated. 4. History of hypertension. 5. History of hyperlipidemia. 6. Radiographic and PFT evidence of COPD/emphysema. RECOMMENDATIONS: From a cardiology viewpoint, this patient probably portents an increased risk for cardiac events. At this point in time, I think it would be castelan to wait for the results of the endoscopy that is scheduled for tomorrow and then have all the specialists gather to elaborate on what may be the best course of action for this patient. If he has advanced lung cancer, he is probably not a surgical candidate, and surgery to the chest will be ruled out by that matter at that point. Whether or not he may benefit from a laparotomy to release adhesions or investigate the etiology of his small bowel obstruction will have to be discussed with GI and the general surgical service. If he were to be subjected to general anesthesia, his risk is certainly high for perioperative cardiac events. We will arrange for a followup echocardiographic study after the aforementioned GI testing. Thank you again for the opportunity to participate in his evaluation. cc: MD Shivam Shah MD [facility]
[2017-04-04] MEDS: ROBITUSSIN-DM PO PRN (21:06)
[2017-04-04] MEDS: LEVAQUIN 750 MG/D5W 750 MG/150 ML IVPB IV SCH (22:08)
[2017-04-05] MEDS: CARAFATE LIQUID PO SCH ×4 (04:44→21:57)
[2017-04-05 05:59] LABS: MANUAL DIFF NEEDED? NO
[2017-04-05 06:07] LABS: BASO% 0.2 % (0.0-0.8); EOS# 0.04 X1000 (0.0-0.7); EOS% 0.6 % (0.0-10.0); HEMATOCRIT 28.9 % (42.0-52.0); HEMOGLOBIN 8.8 g/dL (14.0-18.0); IMM GRAN# 0.02 X1000 (0.0-0.04); IMM GRAN% 0.3 % (0.0-0.5); LYMPH# 0.87 X1000 (1.2-3.4); LYMPH% 13.7 % (20.5-51.1); MCH 28.6 PG (27-31); MCHC 30.4 g/dL (33-37); MCV 93.8 FL (81-99); MONO# 0.81 X1000 (0.11-0.59); MONO% 12.7 % (1.7-9.3); MPV 9.6 FL (7.4-10.4); NEUT% 72.5 % (42.2-75.2); PLT 357 X1000 (130-400); RBC 3.08 XMIL (4.7-6.1)
[2017-04-05] MEDS: MIRALAX PO SCH (08:10)
[2017-04-05] MEDS: PROSCAR PO SCH (08:10)
[2017-04-05] MEDS: ZYLOPRIM PO SCH (08:11)
[2017-04-05] MEDS: DIOVAN PO SCH (08:11)
[2017-04-05] MEDS: SODIUM CHLORIDE 0.9% INJ SCH (08:11)
[2017-04-05] MEDS: PROTONIX IV SCH ×2 (08:11→21:57)
[2017-04-05] MEDS: NORVASC PO SCH (08:11)
[2017-04-05] MEDS: ICAR-C PO SCH (08:11)
--- NOTE | 2017-04-05 13:17 | PROGRESS NOTE ---
DATE: 04/05/2017 SUBJECTIVE: Patient is stable. No nausea or vomiting, BM last evening which was watery. OBJECTIVE: Vital Signs: Afebrile. Pulse 82. Respirations 18, blood pressure 135/69, O2 saturation room air 91-96%. Cardiovascular: RRR. Lungs: CTA. Abdomen: Soft, nondistended, nontender. Extremities: No edema. LABS: White count 6.36, hemoglobin 8.8, platelets 357,000. ASSESSMENT: 1. Left lung mass. 2. Partial small bowel obstruction. 3. Severe aortic stenosis. 4. Anemia. 5. Remote history of smoking. 6. Diet-controlled type 2 diabetes mellitus. 7. Hypertension. 8. Osteoarthritis. 9. Gout. 10. Remote history of kidney stones. 11. Benign prostatic hypertrophy. PLAN: Patient is to have push enteroscopy per Dr. Barker. He is not thought to be a surgical candidate at this point due to his severe aortic stenosis. I have spoken with Dr. Kulkarni about this in detail. The patient is becoming more amenable to consideration for aortic stenosis repair. Will await endoscopy results per Dr. Barker. We are also awaiting the pathology from the bronchoscopy biopsies done yesterday. cc: Shivam Holguin MD
--- NOTE | 2017-04-05 13:23 | PROGRESS NOTE ---
DATE: 04/05/2017 SUBJECTIVE: Patient currently denies abdominal pain, or vomiting. He has not eaten today. He was kept NPO for possible EGD today. He was evaluated by anesthesia and was felt that he was high risk for repeat sedation. He did have bronchoscopy yesterday for evaluation of the left lower lobe mass. There was some difficulty during his sedation yesterday. Patient has also been seen by Dr. Limon for a partial small bowel obstruction. He states he has had a bowel movement. OBJECTIVE: Vital Signs: Temperature 98.5 degrees, pulse 82, respirations 18, blood pressure 135/69. General: Patient is awake, alert, no acute distress. Respiratory: Lung sounds essentially clear. Cardiovascular: Regular rate and rhythm with murmur noted. Abdomen: Soft, nontender. Positive bowel sounds. DIAGNOSTIC RESULTS: Laboratory/Hematology: White count 6.36, hemoglobin 8.8, hematocrit 28.9, MCV 93.8, platelet 357,000. Chemistry sodium 138, potassium 4.2, chloride 101, CO2 30, BUN 9, creatinine 0.8. Glucose 118. CEA was 3.0. ASSESSMENT AND PLAN: 1. Left lower lobe lung mass. Bronchoscopy performed yesterday. 2. Partial bowel obstruction. Restart sips of clear liquids. . 3. Nausea, vomiting, abdominal pain. We will continue to follow. It is felt that he is high risk for repeat sedation due to his history of aortic stenosis. 4. Continue to follow with Dr. Mckenzie, awaiting lung biopsy results. Further plans to be made as needed. We will continue to be available as needed. Dictated by WIL Enamorado for Terry Barker MD cc: WIL Huerta MD Stephen W. Harbin, MD [facility]
[2017-04-05] MEDS: NS 1,000 ML IV SCH (18:05)
--- NOTE | 2017-04-05 19:50 | PROGRESS NOTE ---
DATE: 04/05/2017 SUBJECTIVE: The patient denies abdominal pain, nausea, or vomiting. He is tolerating a few sips of water. OBJECTIVE: Vital Signs: He is afebrile. Vital signs are stable. General: Alert and oriented x3. No acute distress. GI: Soft, nontender, nondistended. No mass. ASSESSMENT AND PLAN: A 77-year-old male with partial small-bowel obstruction which the symptoms are significantly improved. We will advance his diet as tolerated. He is also being evaluated for left lower lung mass and has severe aortic stenosis. cc: MD Shivam Garcia MD
[2017-04-05] MEDS: LEVAQUIN 750 MG/D5W 750 MG/150 ML IVPB IV SCH (21:54)
[2017-04-06] MEDS: CARAFATE LIQUID PO SCH ×4 (04:43→19:52)
[2017-04-06 06:11] LABS: MANUAL DIFF NEEDED? NO
[2017-04-06 06:19] LABS: BASO% 0.2 % (0.0-0.8); EOS# 0.07 X1000 (0.0-0.7); EOS% 1.1 % (0.0-10.0); HEMATOCRIT 29.8 % (42.0-52.0); HEMOGLOBIN 9.2 g/dL (14.0-18.0); IMM GRAN# 0.02 X1000 (0.0-0.04); IMM GRAN% 0.3 % (0.0-0.5); LYMPH# 0.83 X1000 (1.2-3.4); LYMPH% 13.4 % (20.5-51.1); MCH 28.7 PG (27-31); MCHC 30.9 g/dL (33-37); MCV 92.8 FL (81-99); MONO# 0.93 X1000 (0.11-0.59); MPV 9.6 FL (7.4-10.4); PLT 360 X1000 (130-400); RBC 3.21 XMIL (4.7-6.1)
[2017-04-06] MEDS: PROTONIX IV SCH ×4 (07:38→21:37)
[2017-04-06] MEDS: DIOVAN PO SCH ×2 (07:39→13:52)
[2017-04-06] MEDS: ZYLOPRIM PO SCH ×2 (07:39→13:52)
[2017-04-06] MEDS: SODIUM CHLORIDE 0.9% INJ SCH ×2 (07:39→19:52)
[2017-04-06] MEDS: ICAR-C PO SCH ×2 (07:39→13:53)
[2017-04-06] MEDS: NORVASC PO SCH ×2 (07:39→13:52)
[2017-04-06] MEDS: PROSCAR PO SCH ×2 (07:39→13:52)
[2017-04-06] MEDS: MIRALAX PO SCH ×2 (07:40→13:53)
--- NOTE | 2017-04-06 12:42 | PROGRESS NOTE ---
DATE: 04/06/2017 SUBJECTIVE: The patient denies abdominal pain, nausea, or vomiting. He is passing gas. He is tolerating clear liquids. OBJECTIVE: He is afebrile. Vital signs are stable. General: He is alert and oriented x3. No acute distress. He does appear to be down and tearful. GI: Abdomen soft, nontender, nondistended. Good bowel sounds. ASSESSMENT AND PLAN: A 77-year-old male with a left lower lobe mass, aortic stenosis, and possible small bowel obstruction. His obstructive symptoms are resolving. We will advance his diet to a full liquid diet and then soft diet tomorrow if he is still doing well. Results of his bronchoscopy and biopsy are still pending. cc: MD Shivam Garcia MD
--- NOTE | 2017-04-06 13:33 | PROGRESS NOTE ---
DATE: 04/06/2017 SUBJECTIVE: Patient remains stable. No nausea or vomiting. He is stooling well. OBJECTIVE: Vital Signs: T-max was 99.9. Vital signs stable. CV: RRR with prominent murmur. Lungs: CTA. Abdomen: Nontender, nondistended. Extremities: No edema. DATA: Formal pathology is pending on the lung biopsy, but possibility of squamous cell carcinoma preliminary. ASSESSMENT: 1. Left lung mass. 2. Partial small bowel obstruction. 3. Severe aortic stenosis. 4. Anemia. 5. Remote history of smoking. 6. Diet-controlled type 2 diabetes mellitus. 7. Hypertension. 8. Osteoarthritis. 9. Gout. 10. Remote history of kidney stones. 11. Benign prostatic hyperplasia. PLAN: I am going to discuss the patient in detail with Dr. Kulkarni regarding possibility of survival of aortic valve surgery or even valvuloplasty, which might lead to him having a pneumonectomy if the pathology indeed is confirmed to be squamous cell carcinoma of the lung. We also briefly discussed consideration for radiation therapy. The patient had some difficulties with hypoxia during the bronchoscopy, and anesthesia had recommended not pursuing endoscopy this early. As he is doing well in regard to partial SBO, that is on hold for now. Will discuss with consultants. cc: Shivam Holguin MD
[2017-04-06] MEDS: LEVAQUIN 750 MG/D5W 750 MG/150 ML IVPB IV SCH (21:49)
[2017-04-06] MEDS: ROBITUSSIN-DM PO PRN (21:51)
[2017-04-07] MEDS: CARAFATE LIQUID PO SCH ×4 (01:37→20:58)
[2017-04-07] MEDS: NS 1,000 ML IV SCH (05:58)
[2017-04-07 06:00] LABS: MANUAL DIFF NEEDED? NO
[2017-04-07 06:35] LABS: BASO% 0.1 % (0.0-0.8); EOS# 0.06 X1000 (0.0-0.7); EOS% 0.8 % (0.0-10.0); HEMATOCRIT 29.4 % (42.0-52.0); HEMOGLOBIN 9.2 g/dL (14.0-18.0); LYMPH# 0.91 X1000 (1.2-3.4); LYMPH% 12.6 % (20.5-51.1); MCH 28.9 PG (27-31); MCHC 31.3 g/dL (33-37); MCV 92.5 FL (81-99); MONO# 0.78 X1000 (0.11-0.59); MONO% 10.8 % (1.7-9.3); MPV 9.8 FL (7.4-10.4); NEUT% 75.7 % (42.2-75.2); PLT 365 X1000 (130-400); RBC 3.18 XMIL (4.7-6.1)
[2017-04-07] MEDS: ICAR-C PO SCH (10:30)
[2017-04-07] MEDS: MIRALAX PO SCH (10:30)
[2017-04-07] MEDS: PROTONIX IV SCH ×2 (10:30→20:58)
[2017-04-07] MEDS: PROSCAR PO SCH (10:31)
[2017-04-07] MEDS: NORVASC PO SCH (10:31)
[2017-04-07] MEDS: DIOVAN PO SCH (10:31)
[2017-04-07] MEDS: ZYLOPRIM PO SCH (10:32)
--- NOTE | 2017-04-07 13:03 | PROGRESS NOTE ---
DATE: 04/07/2017 SUBJECTIVE: The patient feels fine. He denies any abdominal pain, nausea, or vomiting. He is tolerating a full liquid diet. OBJECTIVE: Vital Signs: He is afebrile. Vital signs are stable. Cardiovascular: Slightly tachycardic with a heart rate in the 90s. Lungs: No work of breathing. Gastrointestinal: Soft, nontender, nondistended. ASSESSMENT AND PLAN: A 77-year-old male with some partial small-bowel obstructive symptoms. These have resolved. We will advance his diet to a regular diet. He is being evaluated for aortic stenosis and left lower lobe lung mass, as well. cc: MD Shivam Garcia MD
--- NOTE | 2017-04-07 13:37 | PROGRESS NOTE ---
DATE: 04/07/2017 SUBJECTIVE: Patient states he is feeling better. Currently denies abdominal pain, nausea, or vomiting. He is tolerating a full liquid diet. OBJECTIVE: Vital Signs: Temperature 97.8 degrees, pulse 92, respirations 20, blood pressure 108/67. Cardiovascular: Regular rate and rhythm. Lung Sounds: Essentially clear. Abdomen: Soft, nontender, nondistended. He is having good bowel movements now. DIAGNOSTIC RESULTS/LABORATORY: Hematology: White count 7.25, hemoglobin 9.2, hematocrit 29.4, MCV 92.5, platelet 365,000. Chemistry last done on 04/03/2017 sodium 138, potassium 4.2, chloride 101, CO2 30, BUN 9, creatinine 0.8. He had bronchoscopy with biopsy. Cytology report is suspicious for malignancy. Awaiting pathology report. Patient has severe aortic stenosis. He has been evaluated by Cardiology. I have spoken with Dr. Kulkarni and he request GI evaluation before proceeding with any aortic valve repair. He is facing possible lung surgery for a new finding of a lung mass most likely malignant. We had tried to proceed with the EGD earlier in the week but it was canceled by Anesthesia due to his recent hypoxic event during the bronchoscopy. He was felt to be a high risk. To begin with GI evaluation we will start with a small bowel follow through before proceeding with any further sedation or endoscopy procedure. Depending on those findings further plans will be made. I have discussed the plans with Dr. Holguin and Dr. Limon along with Dr. Kulkarni. I have discussed the case with Dr. Barker and he recommends small bowel follow-through test which will be done on Monday. Further plans per findings. Dictated by WIL Enamorado for Terry Barker MD cc: WIL Huerta MD Stephen W. Harbin, MD [facility]
--- NOTE | 2017-04-07 13:38 | PROGRESS NOTE ---
DATE: 04/07/2017 SUBJECTIVE: Patient is stable, overall. I have spoken with many of the consultants. The patient had difficulty with hypoxia during the sedation required for bronchoscopy earlier this week, so there has been some concern about proceeding with EGD with push enteroscopy. At this time, I have spoken with Gastroenterology and they plan on doing small-bowel follow-through. I have also spoken with Dr. Kulkarni. He thinks that he needs the full GI workup before he can even consider talking with the cardiovascular surgeon regarding valve treatment. OBJECTIVE: Vital Signs: Afebrile. Pulse 92, respirations 20, blood pressure 108/67, O2 saturation in room air 96% to 99%. Cardiovascular: RRR with a 4 over 6 murmur. Lungs: CTA. Abdomen: Soft, nondistended, and nontender. Extremities: No calf tenderness, cords, or edema. LABORATORY: White count 7.25, hemoglobin 9.2, platelets 365,000. ASSESSMENT: 1. Left lung mass. 2. Partial small-bowel obstruction, resolved, but with stricture or abnormality in the small bowel still without definite etiology. 3. Severe aortic stenosis. 4. Anemia, multifactorial. 5. Remote history of smoking. 6. Type 2 diabetes mellitus, diet controlled. 7. Hypertension. 8. Osteoarthritis. 9. Gout. 10. Remote history of kidney stones. 11. Benign prostatic hypertrophy. PLAN: At this time, we will await small-bowel follow-through studies with the potential for EGD with push enteroscopy early next week if required and amenable per Anesthesia. Dr. Kulkarni is adamant that he desires Gastroenterology evaluation before any consideration for aortic valve replacement could be entertained. Continue blood pressure medications and GI medications. cc: Shivam Holguin MD
[2017-04-07] MEDS: SODIUM CHLORIDE 0.9% INJ SCH (20:58)
[2017-04-07] MEDS: ROBITUSSIN-DM PO PRN (21:00)
[2017-04-07] MEDS: LEVAQUIN 750 MG/D5W 750 MG/150 ML IVPB IV SCH (22:22)
[2017-04-08] MEDS: CARAFATE LIQUID PO SCH ×4 (03:41→23:11)
--- NOTE | 2017-04-08 08:25 | PROGRESS NOTE ---
DATE: 04/08/2017 SUBJECTIVE: Mr. Remberto Yepez is a 77-year-old white male, who we initially saw 04/03/2017 for possible partial small bowel obstruction. He has aortic stenosis and also a left lower lobe lung mass. His abdomen is now soft without tenderness, and he is having bowel activity and is on a regular diet. The pathology from his lung biopsy is pending. cc: MD Shivam Cheatham MD
[2017-04-08] MEDS: DIOVAN PO SCH (09:05)
[2017-04-08] MEDS: MIRALAX PO SCH (09:05)
[2017-04-08] MEDS: PROSCAR PO SCH (09:05)
[2017-04-08] MEDS: ICAR-C PO SCH (09:05)
[2017-04-08] MEDS: PROTONIX IV SCH ×2 (09:05→23:12)
[2017-04-08] MEDS: NORVASC PO SCH (09:05)
[2017-04-08] MEDS: ZYLOPRIM PO SCH (09:05)
--- NOTE | 2017-04-08 11:12 | PROGRESS NOTE ---
DATE: 04/08/2017 SUBJECTIVE: The patient is stable. Still some nonproductive cough. OBJECTIVE: Afebrile. Pulse 73, respirations 20, blood pressure 120/56, O2 saturation on room air 97%-100%. CV: RRR with 4/6 murmur. Lungs: CTA. Occasional cough noted. Abdomen soft, nontender, nondistended. Positive BM this morning. Extremities: No calf tenderness, cords, or edema. Neurologic: Nonfocal, alert and oriented x4. The full pathology is still pending on his lung biopsy. ASSESSMENT: 1. Left lung mass. 2. History of abnormality on CT of the small bowel with resolved partial small bowel obstruction. 3. Severe aortic stenosis. 4. Multifactorial anemia. 5. Remote history of smoking. 6. Diet-controlled type 2 diabetes mellitus. 7. Hypertension. 8. Osteoarthritis. 9. Gout. 10. History of kidney stones, remote. 11. Benign prostatic hypertrophy. PLAN: We are awaiting a small bowel follow-through on Monday which is the next available time. He has been ruled out for push enteroscopy at this time at least until we can see if the small bowel follow-through helps in regard to his diagnosis. He is thought to not be an especially good candidate for even sedation associated with the push enteroscopy as he had some difficulty with the bronchoscopy. I spoke with Dr. Kulkarni, his clothing manager, yesterday regarding aortic valve replacement potential, and that is thought to be extremely risky but would be entertained once we further diagnose the cause of the partial small bowel obstruction abnormality on the CT scan. For now, continue IV antibiotics and current treatments. cc: Shivam Holguin MD
[2017-04-08] MEDS: LEVAQUIN 750 MG/D5W 750 MG/150 ML IVPB IV SCH (23:12)
[2017-04-09] MEDS: NS 1,000 ML IV SCH ×2 (06:38→16:12)
[2017-04-09] MEDS: CARAFATE LIQUID PO SCH ×4 (06:47→23:53)
[2017-04-09] MEDS: MIRALAX PO SCH (09:30)
[2017-04-09] MEDS: PROTONIX IV SCH ×2 (09:30→21:30)
[2017-04-09] MEDS: SODIUM CHLORIDE 0.9% INJ SCH ×2 (09:30→21:30)
[2017-04-09] MEDS: PROSCAR PO SCH (09:35)
[2017-04-09] MEDS: ZYLOPRIM PO SCH (09:35)
[2017-04-09] MEDS: NORVASC PO SCH (09:35)
[2017-04-09] MEDS: ICAR-C PO SCH (09:38)
[2017-04-09] MEDS: DIOVAN PO SCH (09:38)
--- NOTE | 2017-04-09 09:56 | PROGRESS NOTE ---
DATE: 04/09/2017 SUBJECTIVE: Patient is stable. No specific complaints. OBJECTIVE: Vital Signs: Afebrile. Vital signs stable. Three bowel movements in the last 24 hours so for. ASSESSMENT: 1. Left lung mass. 2. History of abnormality on CT of small bowel, stricture with resolved partial small bowel obstruction. 3. Severe aortic stenosis. 4. Multifactorial anemia. 5. Remote history of smoking. 6. Diet-controlled type 2 diabetes mellitus. 7. Hypertension. 8. Osteoarthritis. 9. Gout. 10. History of kidney stones, remote. 11. Benign prostatic hypertrophy. PLAN: Patient is to undergo prep and will have SBFT tomorrow as he is not a great candidate for push enteroscopy due to some recent desaturations during bronchoscopy. Further recommendations will be made regarding his heart valve situation once this SBFT is complete. cc: Shivam Holguin MD
[2017-04-09] MEDS: CITRATE OF MAGNESIA PO ONE ×2 (12:27→17:05)
[2017-04-09] MEDS: DILAUDID IV PRN (16:40)
[2017-04-09] MEDS: LEVAQUIN 750 MG/D5W 750 MG/150 ML IVPB IV SCH (21:29)
[2017-04-10] MEDS: CARAFATE LIQUID PO SCH ×4 (01:53→22:33)
[2017-04-10] MEDS: NS 1,000 ML IV SCH (06:44)
[2017-04-10] MEDS: PROTONIX IV SCH ×2 (11:26→22:33)
[2017-04-10] MEDS: NORVASC PO SCH (11:26)
[2017-04-10] MEDS: ZYLOPRIM PO SCH (11:27)
[2017-04-10] MEDS: ICAR-C PO SCH (11:27)
[2017-04-10] MEDS: PROSCAR PO SCH (11:27)
[2017-04-10] MEDS: DIOVAN PO SCH (11:27)
[2017-04-10] MEDS: MIRALAX PO SCH (11:27)
--- NOTE | 2017-04-10 12:02 | Diag Imaging Result Doc PS360 ---
EXAM: SMALL BOWEL SERIES ONLY HISTORY: evaluate for stricture vs tumor TECHNIQUE: Fluoroscopy time is 54 seconds. Total dose is 2250 cGy square centimeter. 11 total films submitted. COMPARISON: None. FINDINGS: Oral contrast was swallowed in the normal fashion. Transit time through small bowel is just under two hours. There is a small bowel stricture in the right lower quadrant. This likely corresponds to the structure seen on the recent CT. This measures at least 2 cm in length. It does not obstruct the small bowel. The small bowel loops proximal to this are not dilated. IMPRESSION: Distal small bowel stricture concerning for malignancy. No bowel obstruction. Electronically signed by Ruben Portillo 04/10/2017 12:00 PM
--- NOTE | 2017-04-10 13:55 | PROGRESS NOTE ---
DATE: 04/10/2017 SUBJECTIVE: He denies any abdominal pain, nausea, or vomiting. OBJECTIVE: Vital signs: He is afebrile. Vital signs are stable. General: Alert, orient x4. No acute distress. Gastrointestinal: Soft, nontender, nondistended. IMAGING: His small bowel x-ray was reviewed. It does show a continued questionable stricture of the distal small bowel in the right lower quadrant. It does not appear to be obstructing at this time. ASSESSMENT AND PLAN: A 77-year-old male with possible small bowel mass. This is in the setting of a patient with severe aortic stenosis and a large left lower lobe malignant-appearing mass. At this point, I will discuss with pulmonology and cardiology as to his fitness for diagnostic laparoscopy, possible laparotomy for this lesion in small bowel. He also is potentially in need of an aortic valve repair and left lower lobe resection. cc: MD Shivam Garcia MD
--- NOTE | 2017-04-10 18:00 | PROGRESS NOTE ---
DATE: 04/10/2017 SUBJECTIVE: Patient remains stable. OBJECTIVE: Vital signs: Afebrile, pulse 99, respirations 16, blood pressure 100/55, O2 saturation room air 97%. He continues to stool regularly. CV: RRR. Lungs: Distant breath sounds. CTA. Abdomen: Nondistended. Active bowel sounds. Nontender. Extremities: No edema. DATA: Small bowel followthrough reveals 2 cm long stricture in the right lower quadrant of the small bowel. Proximal bowel loops are not dilated. ASSESSMENT: 1. 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 2. Small bowel stricture concerning for 2nd primary cancer in the small intestine. 3. Severe aortic stenosis with ongoing evaluation with Dr. Kulkarni. 4. Multifactorial anemia. 5. Remote history of smoking. 6. Diet-controlled type 2 diabetes mellitus. 7. Hypertension. 8. Osteoarthritis. 9. Gout. 10. History of kidney stones. 11. Benign prostatic hypertrophy. PLAN: At this time, I have spoken again with Dr. Turcios and we are trying to consult with Dr. Kulkarni regarding possible valvuloplasty and then consideration for treatment of the lung cancer with chemo and radiation. We do not have a tissue diagnosis on the small bowel lesion. Patient has had some difficulty with sedation recently with hypoxia associated with that; will discuss further with Dr. Mckenzie and with consultants regarding obtaining the small bowel biopsy. I have reviewed Dr. Limon's note from today. Will discuss with consultants. cc: Shivam Holguin MD
[2017-04-10] MEDS: SODIUM CHLORIDE 0.9% INJ SCH (22:33)
[2017-04-10] MEDS: LEVAQUIN 750 MG/D5W 750 MG/150 ML IVPB IV SCH (22:33)
[2017-04-11] MEDS: NORVASC PO SCH (11:05)
[2017-04-11] MEDS: DIOVAN PO SCH (11:05)
[2017-04-11] MEDS: CARAFATE LIQUID PO SCH ×4 (11:06→23:16)
[2017-04-11] MEDS: ZYLOPRIM PO SCH (11:06)
[2017-04-11] MEDS: ICAR-C PO SCH (11:06)
[2017-04-11] MEDS: PROTONIX IV SCH ×2 (11:06→23:16)
[2017-04-11] MEDS: PROSCAR PO SCH (11:06)
[2017-04-11] MEDS: MIRALAX PO SCH (11:36)
--- NOTE | 2017-04-11 15:40 | ECHO REPORT ---
ORDER DATE: 04/11/2017 MEASUREMENTS: Left ventricular end-diastolic diameter 4.7, systolic diameter 2.8, septal thickness 1.4, posterior wall thickness 1.4, left atrium 4.2, aortic root 3.3. SUMMARY: 1. Adequate quality study. 2. Fibrocalcific changes of trileaflet aortic valve demonstrated with reduced aortic valve leaflet mobility. Peak instantaneous gradient across the valve is 95 mmHg with a mean gradient of 57 mmHg. Calculated aortic valve area is 0.6 cm2. 3. Planimetry. The aortic valve area 0.8 cm2. There is mild aortic regurgitation. Mitral, tricuspid, and pulmonic valves are without structural abnormality with mild mitral regurgitation, [id number] tricuspid regurgitation, and mild pulmonic insufficiency. Estimated systolic PA pressure by Doppler is 60-65 mmHg. The aortic root is normal size. 4. Normal left ventricular chamber size with moderate concentric left hypertrophy is demonstrated. Estimated left ejection fraction appears to be at least 65%. No regional wall motion abnormalities are evident. Doppler suggests grade 1 left ventricular diastolic dysfunction. Left atrium is mildly enlarged. Right atrium and right ventricle are normal in size with normal right ventricular systolic function. 5. No pericardial effusion. 6. Appearance of inferior vena cava suggests normal central venous pressure. CONCLUSIONS: 1. Severe calcific aortic stenosis with mild aortic regurgitation. 2. Mild mitral regurgitation. 3. Mild to moderate tricuspid regurgitation with moderate pulmonary hypertension by Doppler. 4. Moderate concentric left hypertrophy with estimated left ejection fraction greater than 65%. 5. Grade 1 left ventricular diastolic dysfunction. 6. Mild left atrial enlargement. cc: MD Tae Frost MD Stephen W. Harbin, MD
--- NOTE | 2017-04-11 18:25 | PROGRESS NOTE ---
DATE: 04/11/2017 SUBJECTIVE: Patient remains stable. OBJECTIVE: Vital signs: Afebrile. Vital signs stable. CV: RRR. Lungs: CTA. Extremities: No edema. DIAGNOSTIC DATA: Echocardiogram done today reveals severe calcific aortic stenosis with mild aortic regurgitation, mild MR, mild to moderate TR with moderate pulmonary hypertension by Doppler. Moderate concentric LVH with EF of 65%, grade 1 left ventricular diastolic dysfunction, mild left atrial enlargement. ASSESSMENT: 1. Left lung mass with moderately differentiated squamous cell carcinoma. Per pathology. 2. Small-bowel stricture concerning for 2nd primary there. 3. Severe aortic stenosis with moderate pulmonary hypertension. 4. Multifactorial anemia. 5. Remote history of smoking. 6. Type 2 diabetes mellitus. 7. Hypertension. 8. Osteoarthritis. 9. Gout. 10. History of kidney stones. 11. Benign prostatic hypertrophy. PLAN: I have spoken with Dr. Turcios and Dr. Kulkarni in detail and at this time I am going to call [facility] and see if I can transfer him there to see if there is something they can do about his bowel while looking at his small intestine. I will work toward this this evening. cc: Shivam Holguin MD
[2017-04-11] MEDS: NS 1,000 ML IV SCH (20:13)
[2017-04-11] MEDS: SODIUM CHLORIDE 0.9% INJ SCH (23:16)
[2017-04-11] MEDS: LEVAQUIN 750 MG/D5W 750 MG/150 ML IVPB IV SCH (23:16)
[2017-04-11] MEDS: DILAUDID IV PRN (23:27)
[2017-04-11] MEDS: ROBITUSSIN-DM PO PRN (23:34)
[2017-04-12] MEDS: CARAFATE LIQUID PO SCH ×4 (02:20→21:55)
--- NOTE | 2017-04-12 08:51 | PROGRESS NOTE ---
DATE: 04/12/2017 SUBJECTIVE: Patient is still stable, doing well. OBJECTIVE: Vital Signs: Afebrile. Vital signs stable. O2 saturations 97% to 99%. CV: RRR with 4/6 murmur. Lungs: CTA. Extremities: No calf tenderness, cords or edema. IMAGING: Echocardiogram from yesterday reviewed in detail. EF 65%. ASSESSMENT: 1. Left lung mass with moderately differentiated squamous cell carcinoma. 2. Small bowel strictures or suspected second primary tumor. 3. Severe aortic stenosis with moderate pulmonary hypertension, but normal ejection fraction of 65%. 4. Multifactorial anemia, stable. 5. Remote history of smoking. 6. Type 2 diabetes mellitus. 7. Hypertension. 8. Osteoarthritis. 9. Gout. 10. History of kidney stones. 11. Benign prostatic hypertrophy. PLAN: At this time, I have spoken with consultants Dr. Kulkarni, Dr. Mckenzie, Dr. Turcios and Dr. Limon in detail. It appears the best way to approach this is to try to make sure that the small bowel stricture is not being caused by a second primary tumor there. This should be the most amenable to treatment at this time. I have spoken with Dr. Limon, and he desires to do a laparotomy with removal of a portion of the small intestine and the possible tumor there. That will be undertaken tomorrow. Dr. Kulkarni and Dr. Mckenzie will be available to assist with any complications that might arise. Continue supportive care in prep for surgery. cc: Shivam Holguin MD [facility]ITAL[facility]gilio
[2017-04-12] MEDS: PROTONIX IV SCH ×2 (08:55→21:55)
[2017-04-12] MEDS: SODIUM CHLORIDE 0.9% INJ SCH ×2 (08:55→21:56)
[2017-04-12] MEDS: NORVASC PO SCH ×2 (08:56→10:29)
[2017-04-12] MEDS: MIRALAX PO SCH (08:56)
[2017-04-12] MEDS: ICAR-C PO SCH (08:56)
[2017-04-12] MEDS: PROSCAR PO SCH (08:56)
[2017-04-12] MEDS: DIOVAN PO SCH ×2 (08:56→10:29)
[2017-04-12] MEDS: ZYLOPRIM PO SCH (08:56)
--- NOTE | 2017-04-12 11:47 | PROGRESS NOTE ---
DATE: 04/11/2017 SUBJECTIVE: The patient is stable, doing well. Waiting for transfer. OBJECTIVE: Vital Signs: Temperature 98.6 degrees, O2 saturation 97% on room air. Blood pressure 110/80. PHYSICAL EXAMINATION: Appears about the same, comfortable. Vital signs are Abdomen minimally distended but no tenderness. IMPRESSION AND PLAN: 1. Moderately differentiated squamous cell carcinoma in the left. 2. Possible metastatic process in the small bowel causing stricture. 3. Severe aortic stenosis with pulmonary hypertension. 4. Anemia. 5. Diabetes. 6. Arthritis. RECOMMENDATION AND PLAN: At this time, the patient is currently being least for transfer. His critical aortic stenosis needs to be addressed and then the carcinoma of the lung will be addressed. I agree with the current management and let us know if we need to follow when he comes back. cc: MD Shivam North MD
[2017-04-12] MEDS ORDERED: KEFZOL 1 GM/D5W 1 GM/50 ML IVPB IV ONE (13:42)
--- NOTE | 2017-04-12 14:07 | PROGRESS NOTE ---
DATE: 04/12/2017 SUBJECTIVE: The patient is without any new complaints. He denies abdominal pain, nausea or vomiting. He has spoken with Dr. Holguin this morning regarding overall goals of his multiple issues. OBJECTIVE: Vital Signs: He is afebrile. Vital signs are stable. General: He is alert and oriented x4. No acute distress. CV: Regular rate and rhythm with systolic murmur. Respiratory: Bilateral breath sounds. No work of breathing. GI: Soft, non tender, nondistended. No hernia appreciated. LABORATORY: There is none today. ASSESSMENT/PLAN: A 77-year-old male with suspicious small-bowel lesion, possible malignant stricture. Also, with left lower lobe squamous cell cancer and aortic stenosis. I have reviewed Dr. Mckenzie's notes and spoken with Dr. Holguin regarding Dr. Kulkarni's recommendations. No further treatment or investigation of the aortic stenosis will be entertained until a small-bowel lesion is biopsied or identified and treated. He is not really a candidate for a left lower lung resection either at this time. We are planning diagnostic laparoscopy tomorrow to rule out a second primary or metastatic lesion in his small-bowel. This may require a laparotomy and small- bowel resection. I have discussed the risks and benefits with him, including bleeding, infection, anastomotic leak, injury to surrounding structures such as the intestines, respiratory or cardiovascular failure perioperatively, and even the risk of dying. He understands these risks and wishes to proceed with our diagnostic and treatment plan. cc: MD Shivam Garcia MD
[2017-04-12] MEDS: NS 1,000 ML IV SCH (16:50)
[2017-04-13] MEDS: CARAFATE LIQUID PO SCH ×4 (01:21→22:55)
[2017-04-13] MEDS: DILAUDID IV PRN (01:21)
[2017-04-13] MEDS: ROBITUSSIN-DM PO PRN (01:21)
--- NOTE | 2017-04-13 08:51 | PROGRESS NOTE ---
DATE: 04/13/2017 SUBJECTIVE: Patient is stable. Says he slept well. He is ready for surgery this morning. OBJECTIVE: Vital Signs: Afebrile. Vital signs stable, off antihypertensives. CV: RRR with a 4/6 murmur. Lungs: CTA. Abdomen: Soft. Active bowel sounds. No point tenderness. Extremities: No calf tenderness, cords, or edema. Neurological: Nonfocal. Cranial nerves intact. ASSESSMENT: 1. 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 2. Small bowel stricture. Rule out 2nd primary tumor there versus metastasis from the left lung mass. Patient is scheduled for diagnostic laparoscopy and possible laparotomy to remove the small bowel lesion later today. 3. Severe aortic stenosis with moderate pulmonary hypertension. Normal ejection fraction of 65%. 4. Multifactorial anemia, stable. 5. Remote history of smoking. 6. Type 2 diabetes mellitus. 7. Hypertension. 8. Osteoarthritis. 9. Gout. 10. History of kidney stones. 11. Benign prostatic hypertrophy. PLAN: At this time, the most feasible approach is to try to get a diagnosis on the small bowel stricture lesion and that will shed light on what to do for the other lesions. Dr. Limon plans on diagnostic laparoscopy with possible laparotomy later today. Consultants and I will be standing by for any problems perioperatively. cc: Shivam Holguin MD
[2017-04-13] MEDS: PROTONIX IV SCH ×2 (09:32→22:54)
[2017-04-13] MEDS ORDERED: NEO-SYNEPHRINE ONE (16:35)
[2017-04-13] MEDS ORDERED: ROBINUL ONE ×2 (16:35→18:05)
[2017-04-13] MEDS ORDERED: XYLOCAINE-MPF 2% ONE (16:35)
[2017-04-13] MEDS ORDERED: STERILE WATER INJ. ONE (16:35)
[2017-04-13] MEDS ORDERED: AMIDATE ONE (16:35)
[2017-04-13] MEDS ORDERED: NORCURON ONE (16:35)
[2017-04-13] MEDS ORDERED: FENTANYL ONE (17:34)
[2017-04-13] MEDS ORDERED: QUELICIN (DOSE) ONE ×2 (18:02)
[2017-04-13] MEDS ORDERED: DECADRON ONE (18:05)
[2017-04-13] MEDS ORDERED: ZOFRAN ONE (18:05)
[2017-04-13] MEDS ORDERED: OFIRMEV 1000 MG/ISOTONIC SOLN 1,000 MG/100 ML BOTTLE ONE (18:05)
[2017-04-13] MEDS ORDERED: NEOSTIGMINE ONE (18:06)
[2017-04-13] MEDS: ICAR-C PO SCH (18:43)
[2017-04-13] MEDS: PROSCAR PO SCH (18:43)
[2017-04-13] MEDS: ZYLOPRIM PO SCH (18:43)
[2017-04-13] MEDS: MIRALAX PO SCH (18:45)
[2017-04-13] MEDS: MORPHINE ONE ×4 (19:21→19:47)
[2017-04-13 19:28] LABS: URINE MICRO REVIEW NEEDED? NO; URINE SOURCE CATH
[2017-04-13] MEDS ORDERED: NS 1,000 ML ONE (19:35)
[2017-04-13 19:37] LABS: BILIRUBIN URINE NEGATIVE (NEGATIVE); BLOOD URINE NEGATIVE (NEGATIVE); COLOR YELLOW; GLUCOSE URINE NEGATIVE (NEGATIVE); LEUKOCYTES URINE NEGATIVE (NEGATIVE); NITRITE URINE NEGATIVE (NEGATIVE); PH URINE 7.5; PROTEIN URINE NEGATIVE (NEGATIVE); SP GRAVITY URINE 1.015; TURBIDITY URINE CLEAR (CLEAR); UROBILINOGEN URINE 4 mg/dL (NORMAL)
[2017-04-13 19:38] LABS: UR EPITHELIAL CELLS <10 /HPF (<10); URINE BACTERIA NEGATIVE /HPF; URINE RBC <10 /HPF (<10); URINE WBC <10 /HPF (<10)
[2017-04-13] MEDS: PERIDEX MT SCH (22:54)
[2017-04-14] MEDS: KEFZOL 1 GM/D5W 1 GM/50 ML IVPB IV SCH ×2 (00:13→07:25)
[2017-04-14] MEDS: NS 1,000 ML IV SCH ×3 (00:30→09:36)
[2017-04-14] MEDS: FLAGYL 500 MG/NS 500 MG/100 ML IVPB IV SCH ×2 (00:56→09:34)
[2017-04-14] MEDS: CARAFATE LIQUID PO SCH ×4 (02:13→22:37)
--- NOTE | 2017-04-14 06:38 | OPERATIVE NOTE ---
PROCEDURE DATE: 04/13/2017 PREOPERATIVE DIAGNOSES: 1. Small-bowel stricture. 2. Squamous cell lung cancer. 3. Aortic stenosis. POSTOPERATIVE DIAGNOSES: 1. Small-bowel mass. 2. Squamous cell lung cancer. 3. Aortic stenosis. SURGEON: Kike Limon MD ANESTHESIA: General. PROCEDURE: Exploratory laparotomy with small-bowel resection and liver biopsy. ESTIMATED BLOOD LOSS: 30 mL. COMPLICATIONS: None apparent. SPECIMENS: 1. Portion of small bowel. 2. Portion of left lobe of the liver. FINDINGS: There was a large malignant mass of the mid small bowel with associated lymphadenopathy in the mesentery. There was a firm small nodular lesion in the left lobe of the liver. TECHNIQUE: He was brought to the operating room and placed supine on the table. General anesthesia was induced. He was prepped and draped in sterile fashion. An incision was made around the umbilicus with a 10 blade and carried down through the subcutaneous tissue with cautery and through the fascia with cautery. The peritoneum was opened between hemostats and scissors. We then opened the peritoneum throughout the length of our incision with cautery avoiding the underlying bowel. I began lifting up the small bowel. I immediately found a malignant-appearing mass in the mid portion of small bowel. I ran the bowel proximally up to the ligament of Treitz and distally down to the terminal ileum and could not find any other lesion. The appendix and cecum appeared normal. I felt down in the pelvis. There was no pathology felt there. I did feel the omentum and examine the transverse colon. There was no pathology there. The stomach appeared normal. On the left lobe of the liver, there was a small nodular lesion, perhaps 1 cm in size. I did take a biopsy of this with forceps and cauterized the surface of the liver for hemostasis. The right lobe of the liver was not accessible secondary to extensive adhesions from prior open cholecystectomy. We then turned our attention to the small-bowel resection. We placed a wound protector and then divided the bowel proximally and distally with a linear stapler with several centimeters, at least 5 cm, of a clear margin. I divided the intervening mesentery taking a wide swath of mesenteric lymph nodes between hemostats and with cautery. We ligated the mesenteric vessels with 3-0 silk. The specimen was passed off the field. I then performed a stapled [id number] anastomosis. The corners of the bowel ends were brought together and these corners were divided with Metzenbaum scissors. A blue 60 mm linear stapler was passed into each limb of the bowel and a [id number]-[id number] antimesenteric staple anastomosis was created. The common defect was closed with a running 3-0 Vicryl in 2 directions. The mesenteric rent was closed with interrupted 3-0 silk. The anastomosis was patent and had good blood supply. We placed it back into the abdominal cavity. We changed gloves. I removed the wound protector. The omentum was placed back under our wound. The peritoneum was closed with #1 Vicryl. The fascia was closed with #1 Maxon. The skin was closed with skin clips. There were no apparent complications. He was awakened in stable condition and transferred to the recovery room. cc: MD Shivam Garcia MD
[2017-04-14 06:54] LABS: HEMATOCRIT 31.3 % (42.0-52.0); HEMOGLOBIN 9.7 g/dL (14.0-18.0); MCH 28.9 PG (27-31); MCV 93.2 FL (81-99); MPV 9.9 FL (7.4-10.4); RBC 3.36 XMIL (4.7-6.1)
[2017-04-14 07:12] LABS: AGAP 5; BUN 13 mg/dL (8-22); CALCIUM 8.9 mg/dL (8.8-10.2); CHLORIDE 98 mmol/L (98-107); COSMO 280; POTASSIUM 5.5 mmol/L (3.5-5.1); SODIUM 139 mmol/L (136-145); TCO2 36 mmol/L (25-35)
[2017-04-14] MEDS: ZYLOPRIM PO SCH (09:37)
[2017-04-14] MEDS: LOVENOX SUBQ SCH (09:37)
[2017-04-14] MEDS: PERIDEX MT SCH ×2 (09:37→22:36)
[2017-04-14] MEDS: ICAR-C PO SCH (09:38)
[2017-04-14] MEDS: PROSCAR PO SCH (09:38)
--- NOTE | 2017-04-14 11:31 | PROGRESS NOTE ---
DATE: 04/14/2017 SUBJECTIVE: The patient is doing well. He denies any severe pain, nausea, or vomiting. He has not had any flatus or bowel movement yet. OBJECTIVE: Vital Signs: He is afebrile. Vital signs are stable. General: Alert and orient x4. In no acute distress. He is sitting up in a chair. Gastrointestinal: Soft, minimally tender, and nondistended. He has hypoactive bowel sounds. The incision is clean, dry, and intact. LABORATORY: White cell count 5.8, hemoglobin 9.7, sodium 139, potassium 5.5, chloride 98, CO2 of 36, BUN 13, creatinine 0.9, glucose 137. ASSESSMENT/PLAN: A 77-year-old male, postoperative day 1 from a small-bowel resection and liver biopsy. He had a malignant mass of the small bowel. He also has a recent diagnosis of left lower lobe squamous cell lung cancer and he has chronic diagnosis of severe aortic stenosis. We will keep him n.p.o. for now, until was bowel function returns. Dr. Denis will be making rounds over the weekend in my absence. cc: MD Shivam Garcia MD
--- NOTE | 2017-04-14 12:20 | PROGRESS NOTE ---
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 So far, stable without complication. Tolerating ice chips. OBJECTIVE: Vital Signs: Afebrile, pulse 78, respirations 16, blood pressure 103/47, and O2 saturations 96% room air. No significant dysrhythmias. Cardiovascular: RRR with 4/6 murmur. Lungs: Clear. Extremities: No calf tenderness, cords, or edema. LABORATORY DATA: Shows sodium 139, potassium 5.5, chloride 98, CO2 of 36, BUN 13, creatinine 0.9, glucose 137. White count 5.8, hemoglobin 9.7, platelets 324,000. ASSESSMENT: 1. 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 2. Liver lesion, status post liver biopsy. 3. 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 4. Severe aortic stenosis with moderate pulmonary hypertension. 5. Multifactorial anemia, stable. 6. Remote history of smoking. 7. Type 2 diabetes mellitus. 8. Hypertension. 9. Osteoarthritis. 10. Gout. 11. History kidney stones. 12. Benign prostatic hypertrophy. 13. Hyperkalemia. PLAN: We will repeat potassium level to make sure this is not hemolysis. Continue incentive spirometry, pain medications, ice chips per Dr. Limon, and we will await pathology. cc: hSivam Holguin MD
[2017-04-14] MEDS: PROTONIX IV SCH (14:57)
[2017-04-14] MEDS: SODIUM CHLORIDE 0.9% INJ SCH (14:58)
[2017-04-14] MEDS: DILAUDID IV PRN ×2 (14:58→22:37)
[2017-04-15] MEDS: CARAFATE LIQUID PO SCH ×5 (04:28→22:01)
[2017-04-15] MEDS: PROTONIX IV SCH ×2 (04:28→14:08)
[2017-04-15 06:17] LABS: HEMATOCRIT 30.8 % (42.0-52.0); HEMOGLOBIN 9.4 g/dL (14.0-18.0); MCH 29.1 PG (27-31); MCHC 30.5 g/dL (33-37); MCV 95.4 FL (81-99); MPV 9.7 FL (7.4-10.4); RBC 3.23 XMIL (4.7-6.1)
[2017-04-15 06:44] LABS: AGAP 10; BUN 15 mg/dL (8-22); CHLORIDE 99 mmol/L (98-107); COSMO 281; POTASSIUM 4.5 mmol/L (3.5-5.1); SODIUM 140 mmol/L (136-145); TCO2 31 mmol/L (25-35)
[2017-04-15] MEDS: DILAUDID IV PRN ×2 (07:45→22:01)
--- NOTE | 2017-04-15 07:55 | PROGRESS NOTE ---
DATE: 04/15/2017 SUBJECTIVE: Feels okay. Pain is well-controlled with his current regimen. Denies any bowel function, but no nausea and vomiting. PHYSICAL EXAMINATION: Vital Signs: Afebrile. Heart rate 78, blood pressure 143/65. Abdomen: Soft, appropriately tender. Dressing is clean and intact. LABORATORY STUDIES: White count 6, hematocrit 30, creatinine 0.9, glucose 111. ASSESSMENT AND PLAN: A 77-year-old male, now postoperative day 2 from bowel resection for a small bowel mass. Overall, he is progressing as expected. Would go slow with his diet. It would be okay for him to have some clear liquids today, but would avoid advancing beyond this until he has adequate return of bowel function. He is on prophylactic Lovenox. Will continue to follow along. cc: MD Sihvam Rodriguez MD
--- NOTE | 2017-04-15 11:59 | PROGRESS NOTE ---
DATE: 04/15/2017 SUBJECTIVE: The patient is stable. He had some pain earlier this morning in his incision site along his abdomen but overall is doing well postop. He has not had any flatus yet. OBJECTIVE: Vital signs: Afebrile. Pulse is 78, respirations 20, blood pressure 143/56, and O2 saturation on 2 L 98%-99%. CV: RRR with 4/6 murmur. Lungs: Clear to auscultation. Abdomen: Soft. Vertical incision is dressed. No signs of significant bleeding there. Extremities: No calf tenderness, cords, or edema. Pathology is still pending on his surgical specimen from the small bowel resection. LABS: White count is 6.98, hemoglobin 9.4, and platelets 341. Sodium is 140, potassium 4.5, chloride 99, CO2 31, BUN 15, creatinine 0.9, glucose 111, and calcium 9.0. ASSESSMENT: 1. Postoperative day #2 status post laparotomy with small bowel resection with findings of a tumor there, rule out metastasis versus second primary tumor. 2. Left lung mass/squamous cell carcinoma. 3. Liver lesion. 4. Severe aortic stenosis with moderate pulmonary hypertension. 5. Multifactorial anemia. 6. Remote history of smoking. 7. Type 2 diabetes mellitus. 8. Hypertension. 9. Osteoarthritis. 10.Gout. 11.History of kidney stones. 12.Benign prostatic hypertrophy. 13.Hyperkalemia, resolved. PLAN: Continue routine postop care. Awaiting pathology results on the small bowel tumor. Continue Protonix, sucralfate, Lovenox prophylaxis of DVT, gentle IV fluids, and we will follow the patient for complications postop. cc: Shivam Holguin MD
[2017-04-15] MEDS: PERIDEX MT SCH ×2 (12:08→22:02)
[2017-04-15] MEDS: ZYLOPRIM PO SCH (12:09)
[2017-04-15] MEDS: LOVENOX SUBQ SCH (12:09)
[2017-04-15] MEDS: PROSCAR PO SCH (12:09)
[2017-04-15] MEDS: ICAR-C PO SCH (12:09)
[2017-04-15] MEDS: NS 1,000 ML IV SCH (12:11)
[2017-04-15] MEDS: SODIUM CHLORIDE 0.9% INJ SCH (14:08)
[2017-04-16] MEDS: NS 1,000 ML IV SCH ×2 (02:32→19:14)
[2017-04-16] MEDS: CARAFATE LIQUID PO SCH ×5 (02:32→23:59)
[2017-04-16] MEDS: PROTONIX IV SCH ×2 (02:33→14:38)
--- NOTE | 2017-04-16 09:01 | PROGRESS NOTE ---
DATE: 04/16/2017 SUBJECTIVE: Initially, on exam this morning, he had no complaints. He is not passing flatus. Shortly after I left, the nurse reported a large volume emesis. PHYSICAL EXAMINATION: Vital Signs: He has been afebrile overnight, heart rate has been in the 80s, blood pressure is okay at 120s-130s. On 2 L, saturating 98%. Abdomen: Mildly distended but very soft and non-tympanic. Incisions are clean, dry, and intact. LABORATORY DATA: I reviewed his labs from yesterday. White count was normal. Creatinine was 4.5. ASSESSMENT AND PLAN: This is a 77-year-old male status post bowel resection. He does appear to have an expected postoperative ileus. If he continues to vomit, he will need an NG tube. He is otherwise on a proton pump inhibitor and Carafate. We will continue this. We will keep him NPO for now pending resolution of his ileus. Again, if he vomits, he will need a nasogastric tube but we will hold off on that for now. cc: MD Shivam Rodriguez MD
[2017-04-16] MEDS: PROSCAR PO SCH (10:58)
[2017-04-16] MEDS: ZYLOPRIM PO SCH (10:58)
[2017-04-16] MEDS: PERIDEX MT SCH ×3 (10:58→23:59)
[2017-04-16] MEDS: ICAR-C PO SCH (10:58)
[2017-04-16] MEDS: LOVENOX SUBQ SCH (10:58)
[2017-04-16] MEDS: SODIUM CHLORIDE 0.9% INJ SCH (14:38)
[2017-04-17] MEDS: DILAUDID IV PRN (02:34)
[2017-04-17] MEDS: PROTONIX IV SCH ×2 (02:41→14:04)
--- NOTE | 2017-04-17 03:56 | PROGRESS NOTE ---
DATE: 04/16/2017 SUBJECTIVE: Patient still not passing any flatus. He had 1 large episode of emesis earlier this morning but says he feels some better now. OBJECTIVE: Vital Signs: Afebrile, pulse 76, respirations 20, blood pressure 140/52, O2 saturation on room air of 97%. CV: RRR with a 4/6 murmur. Lungs: Diminished breath sounds at the lung bases. Otherwise clear. Abdomen: With a few high-pitched tinkles, otherwise fairly soft. Extremities: No calf tenderness, cords, or edema. ASSESSMENT: 1. Postoperative day #3, status post laparotomy with small bowel resection with findings of tumor. Currently awaiting pathology. 2. Squamous cell carcinoma, left lung. 3. Liver lesion. 4. Severe aortic stenosis with moderate pulmonary hypertension. 5. Multifactorial anemia. 6. Remote history of smoking. 7. Type 2 diabetes mellitus. 8. Hypertension. 9. Osteoarthritis. 10. Gout. 11. History of kidney stones. 12. Benign prostatic hypertrophy. 13. Postoperative ileus. PLAN: Electrolytes were normal yesterday and his creatinine was 0.9. Hemoglobin is stable just above 9. We will monitor for more emesis, and NG tube and x-rays of the abdomen might be necessary if that occurs. So for, he seems stable after the earlier episode. We will observe and await pathology. cc: Shivam Holguin MD
[2017-04-17] MEDS: NS 1,000 ML IV SCH ×2 (05:06→06:45)
[2017-04-17] MEDS: CARAFATE LIQUID PO SCH ×4 (06:51→23:02)
--- NOTE | 2017-04-17 07:36 | PROGRESS NOTE ---
DATE: 04/17/2017 SUBJECTIVE: Patient has had no more nausea or vomiting. Had a little abdominal pain last night but has passed some flatus and feels like he has had some rumbling in his stomach. OBJECTIVE: Vital signs: Afebrile. Pulse 93, respirations 16, blood pressure 140/64, O2 saturation on room air 91 to 97%. Cardiovascular: RRR with a 4/6 murmur. Lungs: Continue to remain clear. Abdomen: Soft. Active bowel sounds today. Extremities: No calf tenderness, cords, or edema. ASSESSMENT: 1. Postoperative day #4 status post laparotomy with small bowel resection and findings of tumor. Pathology still pending. 2. Squamous cell carcinoma left lung. 3. Liver lesion, rule out metastasis. 4. Severe aortic stenosis with moderate pulmonary hypertension. 5. Multifactorial anemia, stable. 6. Remote history of smoking. 7. Type 2 diabetes mellitus. 8. Hypertension. 9. Osteoarthritis. 10. Gout. 11. History of kidney stones. 12. Benign prostatic hypertrophy. 13. Postoperative ileus, improving. PLAN: Diet will be advanced per surgery. I will speak with Dr. Turcios today about the next step in regard to cancer management. We are still awaiting the pathology on the liver lesion biopsy and on the small bowel mass pathology. Continue supportive care. cc: Shivam Holguin MD
[2017-04-17] MEDS: PERIDEX MT SCH ×2 (09:49→23:02)
[2017-04-17] MEDS: LOVENOX SUBQ SCH (09:50)
[2017-04-17] MEDS: ICAR-C PO SCH (09:50)
[2017-04-17] MEDS: PROSCAR PO SCH (09:50)
[2017-04-17] MEDS: ZYLOPRIM PO SCH (09:51)
--- NOTE | 2017-04-17 13:18 | PROGRESS NOTE ---
DATE: 04/17/2017 SUBJECTIVE: The patient denies abdominal pain, nausea, or vomiting today. He is passing gas. He did have some vomiting yesterday. OBJECTIVE: vital signs: He is afebrile. Vital signs are stable. General: He is alert and oriented x4. No acute distress. CARDIOVASCULAR: Regular rate and rhythm. Respiratory: No work of breathing. Gastrointestinal: Soft, nontender, nondistended. He does have good bowel sounds. ASSESSMENT AND PLAN: A 69-year-old male status post small bowel resection for malignant-appearing obstructing tumor. I am going to go ahead and restart a clear liquid diet today. His symptoms have improved. He is ambulating. We are awaiting his pathology results. cc: MD Shivam Garcia MD
[2017-04-17] MEDS: SODIUM CHLORIDE 0.9% INJ SCH (14:05)
[2017-04-18] MEDS: DILAUDID IV PRN ×2 (00:55→23:26)
[2017-04-18] MEDS: SODIUM CHLORIDE 0.9% INJ SCH ×2 (02:51→15:07)
[2017-04-18] MEDS: PROTONIX IV SCH ×2 (02:51→15:07)
[2017-04-18] MEDS: CARAFATE LIQUID PO SCH ×4 (02:51→22:29)
[2017-04-18] MEDS: PROSCAR PO SCH (09:06)
[2017-04-18] MEDS: PERIDEX MT SCH ×2 (09:06→22:29)
[2017-04-18] MEDS: ICAR-C PO SCH (09:06)
[2017-04-18] MEDS: ZYLOPRIM PO SCH (09:06)
[2017-04-18] MEDS: LOVENOX SUBQ SCH (09:17)
--- NOTE | 2017-04-18 13:42 | PROGRESS NOTE ---
DATE: 04/18/2017 SUBJECTIVE: Patient is stable. He has had small bowel movements last evening and one this morning. Still only tolerating some mild clear liquids. Denies abdominal pain. No vomiting. OBJECTIVE: Vital signs: Afebrile. Pulse 93, respirations 14, blood pressure 124/63, O2 saturation on room air 91 to 96%. CV: RRR with prominent murmur. Lungs: CTA. Abdomen: Active bowel sounds. Soft. Vertical scar bandaged. Extremities: No calf tenderness, cords, or edema. ASSESSMENT: 1. Postoperative day #5 status post laparotomy with small bowel resection and findings of tumor, pathology still pending. 2. Squamous cell carcinoma of the lung on the left. 3. Liver lesion, rule out metastasis. 4. Severe aortic stenosis with moderate pulmonary hypertension. 5. Multifactorial anemia. 6. Remote history of smoking. 7. Type 2 diabetes mellitus. 8. Hypertension. 9. Osteoarthritis. 10. Gout. 11. History of kidney stones. 12. Benign prostatic hypertrophy. 13. Postoperative ileus, resolving. PLAN: Advancement of diet will be performed per Dr. Limon. I have spoken with Dr. Turcios. When he is able after the surgery recuperation, he will be discharged home to follow up with Dr. Turcios on May 02 with plans to be made then for treatment of cancer. The pathology on the small bowel lesion and liver lesion are still pending at this time. Continue supportive care with diet advancement per Dr. Limon. cc: Shivam Holguin MD
--- NOTE | 2017-04-18 15:02 | PROGRESS NOTE ---
DATE: 04/18/2017 SUBJECTIVE: The patient denies abdominal pain, nausea, or vomiting. He had a bowel movement. He is tolerating clear liquids. OBJECTIVE: Vital signs: He is afebrile. Vital signs are stable. General: Alert, orient x4. No acute distress. GI: Soft, nontender, nondistended. No organomegaly. Incision clean, dry, and intact. He does have good bowel sounds. Pathology is pending. ASSESSMENT AND PLAN: A 77-year-old male status post small bowel resection for malignant obstructing tumor. His gastrointestinal function appears to be improved. We are going to start a soft diet and Hep-Lock his IV. If he is tolerating this I think he could be discharged tomorrow with follow up with Dr. Turcios or myself. cc: MD Shivam Garcia MD
[2017-04-19] MEDS: CARAFATE LIQUID PO SCH ×2 (02:58→09:25)
[2017-04-19] MEDS: PROTONIX IV SCH (02:58)
[2017-04-19 04:07] VITALS: BP 112/60
--- NOTE | 2017-04-19 09:12 | PROGRESS NOTE ---
DATE: 04/19/2017 SUBJECTIVE: Patient overall doing well. He is eating a little bit for breakfast. Has had 2 bowel movements this morning. Feels slightly weak. OBJECTIVE: Vital Signs: Afebrile. Vital signs stable. CV: RRR with a 4/6 murmur. Lungs: CTA. Abdomen: Soft, nontender. Active bowel sounds. Extremities: No calf tenderness, cords, or edema. ASSESSMENT: 1. Postoperative day #6, status post laparotomy with small-bowel resection and tumor found in the small bowel. 2. Squamous cell carcinoma of the left lung. 3. Liver lesion, rule out metastasis. 4. Severe aortic stenosis with moderate pulmonary hypertension. 5. Multifactorial anemia. 6. Remote history of smoking. 7. Type 2 diabetes mellitus. 8. Hypertension. 9. Osteoarthritis. 10. Gout. 11. History of kidney stones. 12. Benign prostatic hypertrophy. PLAN: We will monitor the patient on through the morning. If he does well, we will discharge him home to follow up with Dr. Turcios as he already has an appointment with him on May 02. He will be discharged off his blood pressure medicines as his blood pressure is doing well without them and give him [place] 5 for pain as needed. Prophylax PUD with Protonix. He will follow up with me in 10-14 days. cc: Shivam Holguin MD
[2017-04-19] MEDS: ICAR-C PO SCH (09:25)
[2017-04-19] MEDS: ZYLOPRIM PO SCH (09:25)
[2017-04-19] MEDS: PROSCAR PO SCH (09:25)
[2017-04-19] MEDS: PERIDEX MT SCH (09:34)
[2017-04-19] MEDS: LOVENOX SUBQ SCH (09:34)
--- NOTE | 2017-04-19 17:50 | CONSULTATION ---
DATE OF CONSULTATION: 04/02/2017 REASON FOR CONSULTATION: Nausea and vomiting and left flank pain and abdominal pain. HISTORY OF PRESENT ILLNESS: This is a 77-year-old gentleman followed by Dr. Holguin, who came in with epigastric pain for about 4 days, nausea, vomiting. He has no hematemesis. He had this pain associated with coughing that is going on 2 months. He is also shown to be anemic. He had severe aortic stenosis as well. He has iron deficiency anemia. I was asked to evaluate further. ALLERGIES: None. PAST MEDICAL HISTORY: 1. BPH with history of prostatitis. 2. Hypertension. 3. Diabetes. 4. Hypertriglyceridemia. 5. Kidney stones. 6. Gout. 7. Aortic stenosis. 8. Osteoarthritis. PAST SURGICAL HISTORY: Cholecystectomy, TURP, left TKR. IMMUNIZATION: Pneumovax was given. Tetanus given February 02. FAMILY HISTORY: Noncontributory. SOCIAL HISTORY: Lives in [place]. 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 Two children. . Does not smoke or drink or do drugs. REVIEW OF SYSTEMS: He had an EGD done by Dr. Barker and colonoscopy in 2011. PHYSICAL EXAMINATION: Vital Signs: Temperature 98.3 degrees, pulse 84, respirations 16, blood pressure 131/60, O2 saturation 96%. General: [id number] obese. HEENT: There is no scleral icterus. Conjunctivae pale. Neck: Supple. Trachea midline. Heart: Normal 1st and 2nd heart sounds. Lungs: Distant breath sounds. Abdomen: Soft and distended. Bowel sounds are active. Tenderness present. Extremities: No edema. Pulses are normal. Neurological: Normal. IMPRESSIONS: 1. Epigastric pain. 2. Nausea and vomiting. 3. Left flank pain. 4. Severe aortic stenosis. 5. Hypertension. 6. Diabetes. 7. Osteoarthritis. 8. Gout. 9. Kidney stones. 10. Constipation. 11. Iron deficiency anemia. RECOMMENDATION: The patient is scheduled to have a CT scan of the abdomen. Will see this and he does suggest that he may have some partial small bowel obstruction on the plain x-ray. Will review those and after CT scan will make further recommendations. cc: MD Shivam North MD
== END 2017-04-19 11:01 | disposition home health service (06) ==
LOC: DIRADM 13:49 → 4N 14:18 → 3N 04-09 15:34 → 4N 04-13 18:56
PROVIDERS: ADMIT Family Medicine; ATTEND Family Medicine